=== PATIENT | male | born 1945 | race Caucasian/White ===

== ENCOUNTER 2017-10-27 22:29 | Inpatient (IN) ==
[2017-10-28] MEDS ORDERED: Acetaminophen 325 MG TABLET PO PRN (04:15)
[2017-10-28] MEDS ORDERED: Naloxone 0.4 MG/ML INJ IVP PRN (04:15)
[2017-10-28] MEDS ORDERED: Ondansetron 4 MG/2 ML VIAL IVP PRN (04:15)
[2017-10-28] MEDS ORDERED: *HR* Morphine 2 MG/ML SYRINGE IVP PRN (04:15)
[2017-10-28] MEDS ORDERED: *HR* Dextrose 50 % in Water (Syg) 50 ML SYRINGE IVP PRN (04:15)
[2017-10-28] MEDS ORDERED: D5% in Water 1,000 ML IVC PRN (04:15)
[2017-10-28] MEDS ORDERED: *HR* OxyCODONE Immed Rel 5 MG TABLET PO PRN ×2 (04:15→12:14)
[2017-10-28] MEDS ORDERED: Dextrose Gel 15 GM/37.5 ML TUBE PO PRN ×2 (04:15)
[2017-10-28] MEDS ORDERED: Nitroglycerin 0.4 MG TAB.SUBL SL PRN (04:18)
--- NOTE | 2017-10-28 04:26 | Event Note ---
Date of Encounter: 10/28/17 Time of Encounter: 04:23 1. Hyperkalemia likely secondary to acute renal failure due to severe dehydration from acute gastroenteritis Send a GI panel as the patient has had more than 9 watery bowel movements since yesterday IV fluids, hold potassium supplements, spironolactone, Lasix, lisinopril and metformin Ordered a CK, bladder scan to consider possible urinary obstruction Send a UA 2. Diabetes type 2, use insulin sliding scale and decrease the dose of long- acting insulin Levemir 30 units twice a day 3. Chronic kidney disease stage III 4. History of CAD, stable 5. History of BPH, continue Cardura, Flomax, consider Nolan catheter in retention is observed 6. Atrial fibrillation on Coumadin Warfarin doses per pharmacy 7. Bipolar disorder, decreased dose of Depakote due to acute renal failure Omeprazole for GI prophylaxis and Coumadin for DVT prophylaxis. Patient will be admitted as inpatient, expected to stay more than 2 midnights. DNR CC arrest DNI. Time spent on this admission 40 minutes
--- NOTE | 2017-10-28 04:33 | Internal Med History&Physical ---
<Rupali Casas - Last Filed: 10/28/17 04:33> Date of Encounter: 10/28/17 Time of Encounter: 04:33 Assessment and Plan (1) Hyperkalemia Current visit: No Status: Acute Hyperkalemia likely secondary to acute renal failure due to severe dehydration from acute gastroenteritis. Vitals are within normal limits. Patient appears very dry. 1. Send a GI panel as the patient has had more than 9 watery bowel movements since yesterday 2. IV fluids, hold potassium supplements, spironolactone, Lasix, lisinopril and metformin 3. Ordered a CK, bladder scan to consider possible urinary obstruction 4. Send a UA Omeprazole for GI prophylaxis and Coumadin for DVT prophylaxis. Patient will be admitted as inpatient, expected to stay more than 2 midnights. DNR CC arrest DNI. Time spent on this admission 40 minutes (2) Diabetes Current visit: No Status: Acute Diabtes, Type 2 1. Use insulin sliding scale and decrease the dose of long-acting insulin Levemir 30 units twice a day Qualifiers: Diabetes mellitus type: type 2 Diabetes mellitus complication status: with unspecified complications Diabetes mellitus long-term insulin use: with director long term care use Qualified Code(s): E11.8 - Type 2 diabetes mellitus with unspecified complications; Z79.4 - skilled nursing (current) use of insulin (3) Chronic kidney disease (CKD) Current visit: Yes Status: Acute Qualifiers: Qualified Code(s): N18.3 - Chronic kidney disease, stage 3 (moderate) (4) History of coronary artery disease Current visit: Yes Status: Acute Stable. Continue to monitor the patient. (5) History of BPH Current visit: Yes Status: Acute Will continue Cardura, Flomax, and consider Nolan catheter if retention is observed. (6) A-fib Current visit: Yes Status: Acute Patient is on Coumadin. Qualifiers: Qualified Code(s): I48.91 - Unspecified atrial fibrillation (7) Bipolar disorder Current visit: Yes Status: Acute Will decreased dose of Depakote due to acute renal failure. Qualifiers: Qualified Code(s): F31.9 - Bipolar disorder, unspecified Internal Medicine - H&P: HPI Chief complaint: Hyperkalemia, Acute Renal Failure Admitted From: Hospital to Hospital Transfer History of present illness: Mr. Mueller is a 71 year old male with a significant past medical history of [place] , CVA, chronic kidney disease, Afib, diabetes, hyperlipidemia, hypertension, CHF , and bipoloar who was transferred from [facility] for hyperkalemia and acute renal failure. The patient stated that [facility] [place] and for the past 2-3 weeks, he admits not feeling well. He stated that "whatever they are giving me is making me sick at the penitentiary". He admits nausea, vomiting, and diarrhea for the past 2-3 weeks. He denies any changes in his diet or medications. He admits he has been compliant with all of his medications. He admitted that he fell yesterday at the penitentiary after slipping in the bathroom but denies any head trauma or LOC. Per patient, they did xray his hip and reported no fractures. He denies any fever, cough, sick contacts, chest pain, shortness of breath, abdominal pain, blood in his stool, dysuria, hematuria, numbnes or tingling, and any weaknesses. Past Med Surg Social Fam HX - Past Medical History Medical history: diabetes, GERD, atrial fibrillation, hyperlipidemia, hypertension, CVA, valvular heart disease, coronary artery disease Psychiatric history: other, anxiety, bipolar, depression - Past Surgical History Surgical History: hip replacement, pacemaker/AICD, angioplasty/stent - Social History Smoking Status: Former smoker Smokeless Tobacco Status: No Alcohol use: none Drug use: none - Family History Mother Living Status: Hx Family Cardiac Disorders: Yes Hx Family Respiratory Disorders: No Hx Family Cancer: No Hx Family GI Disorders: No Hx Family Endocrine Disorder: No Hx Family Neuromuscular Disorders: No Hx Family Neurologic Disorders: No Hx Family HEENT Disorders: No Hx Family Autoimmune Disorders: No Father Living Status: Hx Family Cardiac Disorders: Yes Hx Family Respiratory Disorders: No Hx Family Cancer: No Hx Family GI Disorders: No Hx Family Endocrine Disorder: No Hx Family Neuromuscular Disorders: No Hx Family Neurologic Disorders: No Hx Family HEENT Disorders: No Hx Family Autoimmune Disorders: No Internal Medicine - H&P: Meds Acetaminophen [Tylenol] 650 mg PO Q4H PRN MDD 3-4 g 07/04/16 [History] Clopidogrel [Plavix] 75 mg PO DAILY 07/04/16 [History] Doxazosin Mesylate [Cardura Xl] 8 mg PO DAILY 07/04/16 [History] Finasteride [Proscar] 5 mg PO DAILY 07/04/16 [History] Insulin ASPART [NovoLOG] 1 - 8 unit SQ TIDWM MDD per sliding scale 07/04/16 [ History] Insulin Glargine [Lantus] 60 unit SQ QAM 07/04/16 [History] Isosorbide MONOnitrate (24 HR) [Imdur] 60 mg PO DAILY 07/04/16 [History] Metformin HCl [Metformin HCl ER] 1,000 mg PO BID 07/04/16 [History] Nitroglycerin [Nitrostat] 0.4 mg SL Q5-6MIN PRN MDD 2 doses 07/04/16 [History] Potassium Chloride Elixir [Potassium Chloride] 15 ml PO TID 07/04/16 [History] Ranitidine HCl [Heartburn Relief] 150 mg PO DAILY 07/04/16 [History] Sitagliptin Phosphate [Januvia] 50 mg PO DAILY 07/04/16 [History] Spironolactone [Aldactone] 25 mg PO QAM 07/04/16 [History] Tamsulosin HCl [Flomax] 0.4 mg PO DAILY 07/04/16 [History] amLODIPine [Norvasc] 5 mg PO DAILY 07/04/16 [History] Atorvastatin Calcium [Lipitor] 20 mg PO DAILY 07/05/16 [History] Citalopram Hydrobromide [Citalopram HBr] 10 mg PO DAILY 07/05/16 [History] Ergocalciferol (VITAMIN D2) [Vitamin D2 (50,000 UNIT)] 50,000 unit PO QMONTH 09/09 [History] Furosemide [Lasix] 80 mg PO BID 07/05/16 [History] Insulin Glargine [Lantus] 80 unit SQ HS 07/05/16 [History] Lisinopril [Zestril] 40 mg PO DAILY 07/05/16 [History] Warfarin [Coumadin] 7.5 mg PO DAILY 07/05/16 [History] Carvedilol [Coreg] 12.5 mg PO BIDWM #60 tablet 07/07/16 [Rx] Cyanocobalamin (Vitamin B-12) [Vitamin B12] 1,000 mcg PO DAILY 02/13/17 [History ] Divalproex Sodium [Depakote Sprinkle] 250 mg PO HS 02/13/17 [History] Insulin ASPART [Novolog] 32 unit SQ TIDWM 02/13/17 [History] Loperamide HCl [Imodium A-D] 2 mg PO DAILY PRN 02/13/17 [History] 3 Allergy/AdvReac Type Severity Reaction Status Date / Time No Known Allergies Allergy Verified 10/27/17 20:46 All Systems PM: A 10-system review of systems was performed and is negative for pertinent findings except as documented above in the HPI. - Constitutional Vitals: Temp Pulse Resp BP Pulse Ox 98.2 F 74 17 116/57 92 10/28/17 03:49 10/28/17 03:49 10/28/17 03:49 10/28/17 03:49 10/28/17 03:49 General appearance: Present: cooperative, A&O X 3, pleasant. Absent: no acute distress - Head Head exam: Present: atraumatic, normocephalic - Eye Eye exam: Present: EOMI, PERRL, conjuntiva pink, sclera anicteric Pupils: Present: PERRL - ENT ENT exam: Present: mucous membranes dry Additional comments: Patient appears really dry on exam. Mucus membranes, lips, and skin are dry. - Neck Neck exam general surgery: Present: supple, trachea midline. Absent: lymphadenopathy, tenderness - Respiratory Respiratory exam: Present: CTAB. Absent: accessory muscle use, rales, rhonchi, wheezes - Cardiovascular Cardiovascular exam: Present: RRR, +S1, +S2. Absent: diastolic murmur, gallop, rubs, systolic murmur - GI/Abdominal GI/Abdominal exam: Present: normal bowel sounds, soft, no peritoneal signs. Absent: distended, tenderness - Extremities Exam Extremities exam: Present: tenderness (The patient grimaced as I moved his left lower extremity to examine him. No bleeding, ecchymosis, or laceration noted. Distal pulses are +2/4 bilaterally ), warm, radial pulses palpable and symmetrical. Absent: calf tenderness, cyanotic, pedal edema - Neurological Exam Neurological exam: Present: CN II-XII intact, oriented X3, no focal deficits. Absent: motor sensory deficit, pronater drift, facial droop, speech deficit - Skin Skin exam: Present: dry, intact <Reymundo-Matovelle,Reuben H - Last Filed: 10/28/17 05:40> Date of Encounter: 10/28/17 Internal Medicine - H&P: HPI History of present illness: Mr. Mueller is a 71 year old male All Systems PM: A 10-system review of systems was performed and is negative for pertinent findings except as documented above in the HPI. - Constitutional Vitals: Temp Pulse Resp BP Pulse Ox 98.2 F 74 17 116/57 92 10/28/17 03:49 10/28/17 03:49 10/28/17 03:49 10/28/17 03:49 10/28/17 03:49 Internal Med - H&P Results - Labs CBC & Chem 7: 10/28/17 03:44 10/28/17 03:44 Labs: Short CBC 10/28/17 Range/Units 03:44 WBC 10.0 (4.3-11.1) K/mcL Hgb 12.5 L D (12.9-16.9) g/dL Hct 38.4 (37.5-50.1) % Plt Count 131 L (140-400) K/mcL BMP 10/28/17 03:44 Sodium 141 Potassium 5.5 H Chloride 109 H Carbon Dioxide 25 BUN 69 H Creatinine 3.16 H Glucose 141 H Calcium 9.2 - Attending Attestation Date of Encounter: 10/28/17 Time of Encounter: 04:23 1. Hyperkalemia likely secondary to acute renal failure due to severe dehydration from acute gastroenteritis Send a GI panel as the patient has had more than 9 watery bowel movements since yesterday IV fluids, hold potassium supplements, spironolactone, Lasix, lisinopril and metformin Ordered a CK, bladder scan to consider possible urinary obstruction Send a UA Recheck labs including BMP to consider adding additional doses of calcium gluconate, bicarbonate, D50, insulin, Kayexalate may not be used as the patient has diarrhea already 2. Diabetes type 2, use insulin sliding scale and decrease the dose of long- acting insulin Levemir 30 units twice a day 3. Chronic kidney disease stage III 4. History of CAD, stable 5. History of BPH, continue Cardura, Flomax, consider Nolan catheter if retention is confirmed 6. Atrial fibrillation on Coumadin Warfarin doses per pharmacy 7. Bipolar disorder, decreased dose of Depakote due to acute renal failure Omeprazole for GI prophylaxis and Coumadin for DVT prophylaxis. Patient will be admitted as inpatient, expected to stay more than 2 midnights. DNR CC arrest DNI. Time spent on this admission 40 minutes I examined this patient and my medical decision-making was reviewed with the Resident Physician. I agree with the documented findings, disposition and treatment plan as described except to the extent set forth below.
[2017-10-28 04:40] LABS: Hematocrit 38.4 % (37.5-50.1); Hemoglobin 12.5 g/dL (12.9-16.9); Mean Corpuscular HGB Conc 32.6 g/dL (31.6-35.5); Mean Corpuscular Volume 92.3 fL (83.0-100.0); Mean Platelet Volume 11.4 fL (9.4-12.4); Platelet Count 131 K/mcL (140-400); Red Blood Count 4.16 M/mcL (4.19-5.50); Red Cell Distribution Width 16.8 % (11.5-14.5)
[2017-10-28 05:04] LABS: Calcium 9.2 mg/dL (8.6-10.3); Potassium 5.5 mEq/L (3.5-5.1)
[2017-10-28] MEDS: 0.9 % Sodium Chloride 1,000 ML IVC SCH ×3 (05:31→12:54)
[2017-10-28 06:20] LABS: INR 2.9; Prothrombin Time 32.2 Seconds (9.4-12.1)
[2017-10-28] MEDS: Finasteride 5 MG TABLET PO SCH (08:50)
[2017-10-28] MEDS: amLODIPine 5 MG TABLET PO SCH (08:51)
[2017-10-28] MEDS: Insulin LISPRO 300 UNITS/3 ML VIAL SQ SCH ×4 (08:54→20:46)
[2017-10-28] MEDS ORDERED: NON-FORMULARY MEDICATION 1 EACH EACH (Insulin Glargine [Lantus] 30 UNIT) SQ SCH (09:00)
[2017-10-28] MEDS: Insulin DETEMIR 100 UNIT/ML X5UNITS SQ SCH ×2 (09:00→20:45)
[2017-10-28] MEDS ORDERED: Isosorbide MONOnitrate (24 HR) 60 MG TAB.ER.24H PO SCH (09:00)
[2017-10-28 16:07] LABS: Bilirubin,Urine Negative (Negative); Blood,Urine Moderate (Negative); Clarity,Urine Turbid (Clear); Color,Urine Yellow (Yellow); Glucose,Urine (UA) Normal (Normal); Ketones,Urine Negative (Negative); Leukocyte Esterase,Urine Large (Negative); Nitrite,Urine Negative (Negative); Protein,Urine >=300 mg/dL (Neg-Trace); Specific Gravity,Urine 1.015 (1.010-1.025); Urobilinogen,Urine Normal (Normal)
[2017-10-28 16:13] LABS: Bacteria,Urine Many per hpf (None-Few); Mucus,Urine Many (Few); Squamous Epithelial Cell,Urine Present per lpf (None-Few)
[2017-10-28 16:15] LABS: RBC,Urine Present per hpf (0-3); WBC,Urine TNTC per hpf (0-3)
[2017-10-28] MEDS ORDERED: 0.9 % Sodium Chloride 500 ML IV SCH (16:45)
[2017-10-28] MEDS ORDERED: 0.9 % Sodium Chloride 500 ML IVC SCH (16:45)
[2017-10-28] MEDS ORDERED: 0.9 % Sodium Chloride 1,000 ML IVC SCH (17:45)
[2017-10-28] MEDS ORDERED: 0.9 % Sodium Chloride 1,000 ML ONE (17:45)
[2017-10-28] MEDS ORDERED: *HR* Warfarin 2.5 MG TABLET PO ONE (18:00)
[2017-10-28] MEDS ORDERED: Warfarin perPT PO PRN (18:00)
[2017-10-28] MEDS ORDERED: *HR* Warfarin 7.5 MG TABLET PO ONE (18:00)
[2017-10-28] MEDS: Divalproex Sodium 125 MG CAPSULE PO SCH (20:45)
--- NOTE | 2017-10-28 22:15 | Event Note ---
Date of Encounter: 10/28/17 Time of Encounter: 10:12 Patient was seen and examined this AM. 71 year old man presents with dehydration likely from viral illness. He had KIRIT with elevated potassium as well. Patient has been given IVF and somewhat improved. This morning he was hypotensive and required 500 cc bolus which did improve BP. VS: Reviewed, BP improved after fluids, normal HR, afebrile Physical exam: obese male in no acute distress. Heart sounds normal, lung sounds difficult to appreciate because of body habitus and patient positioning but could not appreciate any w/r/r. Lower extremity 1+ pedal edema bilaterally - Continue IVF as needed, judiciously as patient does have heart failure history. - Nephrology following, recommendations appreciated - Hypotension: hold home medications until BP normalizes
[2017-10-29 06:48] LABS: INR 2.8; Prothrombin Time 31.3 Seconds (9.4-12.1)
[2017-10-29 06:56] LABS: Calcium 8.5 mg/dL (8.6-10.3); Magnesium 1.2 mg/dL (1.6-2.6); Potassium 5.1 mEq/L (3.5-5.1)
[2017-10-29] MEDS: Insulin LISPRO 300 UNITS/3 ML VIAL SQ SCH ×4 (08:30→21:44)
[2017-10-29] MEDS: Insulin DETEMIR 100 UNIT/ML X5UNITS SQ SCH ×2 (08:31→21:44)
[2017-10-29] MEDS: Finasteride 5 MG TABLET PO SCH (08:31)
[2017-10-29] MEDS ORDERED: cefTRIAXone 1,000 MG in Water for inj. (sterile) 20 ML 10 ML IVP SCH (10:00)
[2017-10-29] MEDS ORDERED: *HR* Warfarin 2 MG TABLET PO ONE (18:00)
--- NOTE | 2017-10-29 19:05 | Internal Med Progress Note ---
Date of Encounter: 10/29/17 Time of Encounter: 19:03 - Assessment and plan (1) Dehydration Current Visit: Yes Status: Acute Assessment and plan: Judicious IV fluid. Family at bedside states that he gets fluid overloaded very easy. Patient is eating now, will DC IV fluids and monitor. (2) Atrial fibrillation Current Visit: Yes Status: Acute Qualifiers: Atrial fibrillation type: chronic Qualified Code(s): I48.2 - Chronic atrial fibrillation (3) Coronary artery disease Current Visit: Yes Status: Acute Qualifiers: Coronary Disease-Associated Artery/Lesion type: unspecified vessel or lesion type [place] vs. transplanted heart: unspecified whether [place] or transplanted heart Associated angina: angina presence unspecified Qualified Code(s): I25.10 - Atherosclerotic heart disease of [place] coronary artery without angina pectoris (4) Acute renal failure Current Visit: No Status: Acute Assessment and plan: Improving with IV fluid Qualifiers: Acute renal failure type: unspecified Qualified Code(s): N17.9 - Acute kidney failure, unspecified (5) Hyperkalemia Current Visit: No Status: Acute (6) Hypertension Current Visit: Yes Status: Acute Assessment and plan: Currently hypotensive so hold BP medications except for metoprolol as patient does have atrial fibrillation. Qualifiers: Hypertension type: essential hypertension Qualified Code(s): I10 - Essential (primary) hypertension - Subjective Interval history: Had episode of hypotension overnight 84/48 overnight, hr was within normal limits. Morning BP meds have been held and patient currently normotensive. Patient states he only had one loose BM today, better formed than yesterday. - Constitutional Vitals: Temp Pulse Resp BP Pulse Ox 97.6 F 84 16 128/56 92 10/29/17 16:44 10/29/17 16:44 10/29/17 16:44 10/29/17 16:44 10/29/17 16:44 General appearance: Present: cooperative, A&O X 3, pleasant. Absent: no acute distress Internal Medicine: Result - Labs CBC & Chem 7: 10/28/17 03:44 10/29/17 06:21 Labs: BMP 10/29/17 06:21 Sodium 142 Potassium 5.1 Chloride 113 H Carbon Dioxide 24 BUN 40 H Creatinine 1.92 H Glucose 261 H Calcium 8.5 L - ABG Interpretation ABG results: PT/INR, D-dimer PT 31.3 Seconds (9.4-12.1) H 10/29/17 06:21 Consult Discharge Plan - Plan Referrals: Chantel Narvaez MD [Primary Care Provider] - (Patient will follow up with [facility])
[2017-10-29] MEDS: Divalproex Sodium 125 MG CAPSULE PO SCH (21:44)
[2017-10-30 05:04] LABS: Basophils % 0.4 %; Eosinophils # 0.3 K/mcL (0.0-0.6); Eosinophils % 3.4 %; Hemoglobin 12.1 g/dL (12.9-16.9); Immature Granulocytes % 1.2 % (0-4); Lymphocytes # 1.4 K/mcL (0.6-4.6); Lymphocytes % 18.2 %; Mean Corpuscular HGB Conc 31.8 g/dL (31.6-35.5); Mean Corpuscular Volume 94.1 fL (83.0-100.0); Mean Platelet Volume 10.7 fL (9.4-12.4); Monocytes # 0.9 K/mcL (0.0-1.3); Monocytes % 12.3 %; Neutrophils # 4.9 K/mcL (1.6-8.9); Platelet Count 109 K/mcL (140-400); Red Blood Count 4.04 M/mcL (4.19-5.50); Red Cell Distribution Width 16.6 % (11.5-14.5); Segmented Neutrophils % 64.5 %
[2017-10-30 05:20] LABS: INR 2.7; Prothrombin Time 29.5 Seconds (9.4-12.1)
[2017-10-30 05:32] LABS: BUN/Creatinine Ratio 18 (6-26); Blood Urea Nitrogen 24 mg/dL (8-23); Calcium 8.9 mg/dL (8.6-10.3); Carbon Dioxide 24 mEq/L (23-29); Chloride 111 mEq/L (98-107); Glucose 275 mg/dL (70-105); Osmolality,Calculated 306 (280-300); Sodium 141 mEq/L (136-145); eGFR For African Americans > 60 (> 60); eGFR For Non-African Americans 54 (> 60)
[2017-10-30] MEDS: Finasteride 5 MG TABLET PO SCH (08:49)
[2017-10-30] MEDS: amLODIPine 5 MG TABLET PO SCH (08:49)
[2017-10-30] MEDS: Insulin LISPRO 300 UNITS/3 ML VIAL SQ SCH ×4 (08:51→21:46)
[2017-10-30] MEDS: Insulin DETEMIR 100 UNIT/ML X5UNITS SQ SCH ×2 (08:51→21:29)
--- NOTE | 2017-10-30 13:19 | Internal Med Progress Note ---
Date of Encounter: 10/30/17 Time of Encounter: 13:17 - Assessment and plan (1) Dehydration Current Visit: Yes Status: Resolved Assessment and plan: Judicious IV fluid. Patient now eating and not dehydrated, fluids were discontinued 10/29/17, appetite is good. 10/30/16 Patient had urine cultures showing MDRO Proteus and Rocephin was discontinued and he was started on meropenem. (2) Urinary tract infection due to Proteus Current Visit: Yes Status: Acute Assessment and plan: Will begin meropenem based on culture sensitivities. Since patient needs IV antibiotics, this may delay his disposition as this is a weekend and it is undetermined at this point if he needs to go home with IV treatment. Will monitor. (3) Atrial fibrillation Current Visit: Yes Status: Acute Assessment and plan: Continue Coreg, Warfarin Qualifiers: Atrial fibrillation type: chronic Qualified Code(s): I48.2 - Chronic atrial fibrillation (4) Acute renal failure Current Visit: No Status: Acute Assessment and plan: Improving after he was given IV fluids. IV fluids held as patient was euvolemic and normotensive and he is prone to fluid overload. He is also eating without difficulty. Qualifiers: Acute renal failure type: unspecified Qualified Code(s): N17.9 - Acute kidney failure, unspecified (5) Coronary artery disease Current Visit: Yes Status: Acute Assessment and plan: On Plavix Qualifiers: Coronary Disease-Associated Artery/Lesion type: unspecified vessel or lesion type [place] vs. transplanted heart: unspecified whether [place] or transplanted heart Associated angina: angina presence unspecified Qualified Code(s): I25.10 - Atherosclerotic heart disease of [place] coronary artery without angina pectoris (6) Hyperkalemia Current Visit: No Status: Acute Assessment and plan: Replace as needed. (7) Hypertension Current Visit: Yes Status: Acute Assessment and plan: He was hypotensive from dehydration so were held. May add back his hypertensive agents gradually as needed. Metoprolol was continued as patient does have atrial fibrillation. Norvasc added back on 10/29/17. Qualifiers: Hypertension type: essential hypertension Qualified Code(s): I10 - Essential (primary) hypertension (8) Hypomagnesemia Current Visit: Yes Status: Acute Assessment and plan: From acute illness. Will replace today. Patient eating normally, anticipate will be normal in few days. - Subjective Interval history: Had episode of hypotension overnight 84/48 overnight, hr was within normal limits. Morning BP meds have been held and patient currently normotensive. 10/30 : Patient is normotensive, normal HR Patient states he only had one loose BM today, better formed than yesterday. - Constitutional Vitals: Temp Pulse Resp BP Pulse Ox 98.3 F 90 18 101/52 96 10/30/17 11:58 10/30/17 11:58 10/30/17 11:58 10/30/17 11:58 10/30/17 11:58 General appearance: Present: cooperative, A&O X 3, pleasant. Absent: no acute distress - Head Head exam: Present: atraumatic, normocephalic - Eye Eye exam: Present: PERRL, conjuntiva pink, sclera anicteric Pupils: Present: PERRL - Neck Neck exam general surgery: Present: supple, trachea midline. Absent: lymphadenopathy - Respiratory Respiratory exam: Present: decreased breath sounds, CTAB. Absent: accessory muscle use, rales, rhonchi, wheezes - Cardiovascular Cardiovascular exam: Present: RRR, +S1, +S2. Absent: diastolic murmur, gallop, rubs, systolic murmur - GI/Abdominal GI/Abdominal exam: Present: normal bowel sounds, soft, no peritoneal signs. Absent: distended, tenderness - Extremities Exam Extremities exam: Present: pedal edema, warm, radial pulses palpable and symmetrical. Absent: calf tenderness, cyanotic Additional comments: at patient's stated baseline; 1+ bipedal - Neurological Exam Neurological exam: Present: CN II-XII intact, oriented X3, no focal deficits. Absent: pronater drift, facial droop, speech deficit - Skin Skin exam: Present: dry, intact Internal Medicine: Result - Labs CBC & Chem 7: 10/30/17 04:58 10/30/17 04:58 Labs: Short CBC 10/30/17 Range/Units 04:58 WBC 7.6 (4.3-11.1) K/mcL Hgb 12.1 L (12.9-16.9) g/dL Hct 38.0 (37.5-50.1) % Plt Count 109 L (140-400) K/mcL Neutrophils # 4.9 (1.6-8.9) K/mcL BMP 10/30/17 04:58 Sodium 141 Potassium 5.0 Chloride 111 H Carbon Dioxide 24 BUN 24 H Creatinine 1.31 H Glucose 275 H Calcium 8.9 - ABG Interpretation ABG results: PT/INR, D-dimer PT 29.5 Seconds (9.4-12.1) H 10/30/17 04:58 Consult Discharge Plan - Plan Referrals: Chantel Narvaez MD [Primary Care Provider] - (Patient will follow up with [facility])
[2017-10-30] MEDS: Meropenem 1,000 MG in Water for inj. (sterile) 10 ML IVP SCH (17:22)
[2017-10-30] MEDS: Divalproex Sodium 125 MG CAPSULE PO SCH (21:29)
[2017-10-31] MEDS: Meropenem 1,000 MG in Water for inj. (sterile) 20 ML 10 ML IVP SCH ×3 (00:59→17:32)
[2017-10-31] MEDS: Meropenem 1,000 MG in Water for inj. (sterile) 10 ML IVP SCH (01:22)
[2017-10-31 04:17] LABS: Basophils % 0.2 %; Eosinophils # 0.3 K/mcL (0.0-0.6); Eosinophils % 3.4 %; Hematocrit 35.1 % (37.5-50.1); Hemoglobin 11.5 g/dL (12.9-16.9); Immature Granulocytes % 1.1 % (0-4); Lymphocytes # 1.9 K/mcL (0.6-4.6); Lymphocytes % 23.1 %; Mean Corpuscular HGB Conc 32.8 g/dL (31.6-35.5); Mean Corpuscular Volume 91.6 fL (83.0-100.0); Mean Platelet Volume 11.2 fL (9.4-12.4); Monocytes # 1.1 K/mcL (0.0-1.3); Monocytes % 13.2 %; Neutrophils # 4.9 K/mcL (1.6-8.9); Platelet Count 116 K/mcL (140-400); Red Blood Count 3.83 M/mcL (4.19-5.50); Red Cell Distribution Width 16.2 % (11.5-14.5)
[2017-10-31 04:29] LABS: INR 1.7; Prothrombin Time 18.3 Seconds (9.4-12.1)
[2017-10-31 04:41] LABS: BUN/Creatinine Ratio 13 (6-26); Blood Urea Nitrogen 14 mg/dL (8-23); Calcium 9.2 mg/dL (8.6-10.3); Carbon Dioxide 23 mEq/L (23-29); Chloride 106 mEq/L (98-107); Glucose 238 mg/dL (70-105); Osmolality,Calculated 288 (280-300); Potassium 4.2 mEq/L (3.5-5.1); Sodium 135 mEq/L (136-145); eGFR For African Americans > 60 (> 60); eGFR For Non-African Americans > 60 (> 60)
[2017-10-31] MEDS: Insulin LISPRO 300 UNITS/3 ML VIAL SQ SCH ×4 (09:14→21:30)
[2017-10-31] MEDS: Insulin DETEMIR 100 UNIT/ML X5UNITS SQ SCH ×2 (09:16→21:30)
[2017-10-31] MEDS: amLODIPine 5 MG TABLET PO SCH (09:17)
[2017-10-31] MEDS: Finasteride 5 MG TABLET PO SCH (09:18)
--- NOTE | 2017-10-31 13:06 | Internal Med Progress Note ---
Date of Encounter: 10/31/17 Time of Encounter: 13:04 - Assessment and plan (1) Dehydration Current Visit: Yes Status: Resolved Assessment and plan: He was rehydrated judiciously with IV fluid. Patient now eating and not dehydrated, fluids were discontinued 10/29/17, appetite is good and eating without issue. Still hypotensive and Imdur and lisinopril held. 10/30/16 Patient had urine cultures showing MDRO Proteus and Rocephin was discontinued and he was started on meropenem. (2) Urinary tract infection due to Proteus Current Visit: Yes Status: Acute Assessment and plan: Patient was started on Rocephin initially for UTI. Cultures came back on 10/30 for Proteus that had multiple resistence, best covered with meropenem. Patient will need IV antibiotics on discharge. (3) Atrial fibrillation Current Visit: Yes Status: Acute Assessment and plan: Continue Coreg, Warfarin Qualifiers: Atrial fibrillation type: chronic Qualified Code(s): I48.2 - Chronic atrial fibrillation (4) Acute renal failure Current Visit: No Status: Acute Assessment and plan: Resolved. was Improving after he was given IV fluids. IV fluids held as patient was euvolemic and normotensive and he is prone to fluid overload. He is also eating without difficulty. Qualifiers: Acute renal failure type: unspecified Qualified Code(s): N17.9 - Acute kidney failure, unspecified (5) Coronary artery disease Current Visit: Yes Status: Acute Assessment and plan: On Plavix Qualifiers: Coronary Disease-Associated Artery/Lesion type: unspecified vessel or lesion type [place] vs. transplanted heart: unspecified whether [place] or transplanted heart Associated angina: angina presence unspecified Qualified Code(s): I25.10 - Atherosclerotic heart disease of [place] coronary artery without angina pectoris (6) Hypertension Current Visit: Yes Status: Acute Assessment and plan: He was hypotensive from dehydration so were held. May add back his hypertensive agents gradually as needed. - Coreg continued as patient does have atrial fibrillation. - Norvasc added back on 10/29/17. Following home medications are still held to avoid hypotensive episodes: Doxazosin, Imdur, Aldactone, Lasix, Lisinopril. Qualifiers: Hypertension type: essential hypertension Qualified Code(s): I10 - Essential (primary) hypertension (7) Hyperkalemia Current Visit: No Status: Acute Assessment and plan: Replace as needed. Lasix is held due to recent dehydration and hypotension. (8) Hypomagnesemia Current Visit: Yes Status: Acute Assessment and plan: From acute illness. Will replace today. Patient eating normally, anticipate will be normal in few days. (9) BPH (benign prostatic hyperplasia) Current Visit: Yes Status: Acute Assessment and plan: Continue Finasteride, Flomax Cardura, hypotensive episodes. can add back when BP tolerates Qualifiers: Lower urinary tract symptom presence: unspecified whether lower urinary tract symptoms present Qualified Code(s): N40.0 - Benign prostatic hyperplasia without lower urinary tract symptoms (10) Diabetes Current Visit: No Status: Acute Assessment and plan: On [place] 30 BID, and sliding scale Qualifiers: Diabetes mellitus type: type 2 Diabetes mellitus complication status: with unspecified complications Diabetes mellitus extermination inspector insulin use: with extermination inspector use Qualified Code(s): E11.8 - Type 2 diabetes mellitus with unspecified complications; Z79.4 - termite exterminator (current) use of insulin (11) DVT prophylaxis Current Visit: No Status: Acute Assessment and plan: On coumadin - Subjective Interval history: Last episode of hypotension 84/48 was on 10/29. BP medications were held. Norvasc added back so far. Given IV fluid when needed and then BP stays within normal limits. Since 10/30 patient has been having more formed stools, normal color without any blood. He denies fevers/chills, n/v. - Constitutional Vitals: Temp Pulse Resp BP Pulse Ox 98.3 F 92 18 103/63 94 10/31/17 11:42 10/31/17 11:42 10/31/17 11:42 10/31/17 11:42 10/31/17 11:42 General appearance: Present: cooperative, A&O X 3, morbidly obese, pleasant. Absent: no acute distress - Head Head exam: Present: atraumatic, normocephalic - Eye Eye exam: Present: PERRL, conjuntiva pink, sclera anicteric Pupils: Present: PERRL - Neck Neck exam general surgery: Present: supple, trachea midline. Absent: lymphadenopathy - Respiratory Respiratory exam: Present: decreased breath sounds, CTAB. Absent: accessory muscle use, rales, rhonchi, wheezes - Cardiovascular Cardiovascular exam: Present: RRR, +S1, +S2. Absent: diastolic murmur, gallop, rubs, systolic murmur - GI/Abdominal GI/Abdominal exam: Present: normal bowel sounds, soft, no peritoneal signs. Absent: distended, tenderness - Extremities Exam Extremities exam: Present: pedal edema, warm, radial pulses palpable and symmetrical. Absent: calf tenderness, cyanotic Additional comments: edema unchanged since yesterday exam - Neurological Exam Neurological exam: Present: CN II-XII intact, oriented X3, no focal deficits. Absent: pronater drift, facial droop, speech deficit - Skin Skin exam: Present: dry, intact Internal Medicine: Result - Labs CBC & Chem 7: 10/31/17 03:38 10/31/17 03:38 Labs: Short CBC 10/31/17 Range/Units 03:38 WBC 8.3 (4.3-11.1) K/mcL Hgb 11.5 L (12.9-16.9) g/dL Hct 35.1 L (37.5-50.1) % Plt Count 116 L (140-400) K/mcL Neutrophils # 4.9 (1.6-8.9) K/mcL BMP 10/31/17 03:38 Sodium 135 L Potassium 4.2 Chloride 106 Carbon Dioxide 23 BUN 14 Creatinine 1.07 Glucose 238 H Calcium 9.2 - ABG Interpretation ABG results: PT/INR, D-dimer PT 18.3 Seconds (9.4-12.1) H 10/31/17 03:38 Consult Discharge Plan - Plan Referrals: Chantel Narvaez MD [Primary Care Provider] - (Patient will follow up with [facility] pcp)
[2017-10-31] MEDS ORDERED: Insulin LISPRO 300 UNITS/3 ML VIAL SQ SCH (17:00)
[2017-10-31] MEDS: Divalproex Sodium 125 MG CAPSULE PO SCH (21:30)
[2017-11-01] MEDS: Meropenem 1,000 MG in Water for inj. (sterile) 20 ML 10 ML IVP SCH ×2 (00:12→09:48)
[2017-11-01 05:42] LABS: Basophils % 0.3 %; Eosinophils # 0.3 K/mcL (0.0-0.6); Eosinophils % 3.3 %; Hematocrit 38.6 % (37.5-50.1); Hemoglobin 12.4 g/dL (12.9-16.9); Immature Granulocytes % 1.3 % (0-4); Lymphocytes # 1.5 K/mcL (0.6-4.6); Lymphocytes % 19.4 %; Mean Corpuscular HGB Conc 32.1 g/dL (31.6-35.5); Mean Corpuscular Hemoglobin 29.3 pg (28.0-33.3); Mean Corpuscular Volume 91.3 fL (83.0-100.0); Mean Platelet Volume 10.8 fL (9.4-12.4); Monocytes % 13.1 %; Neutrophils # 4.7 K/mcL (1.6-8.9); Platelet Count 124 K/mcL (140-400); Red Blood Count 4.23 M/mcL (4.19-5.50); Segmented Neutrophils % 62.6 %
[2017-11-01 05:43] LABS: BUN/Creatinine Ratio 12 (6-26); Blood Urea Nitrogen 11 mg/dL (8-23); Calcium 9.3 mg/dL (8.6-10.3); Carbon Dioxide 27 mEq/L (23-29); Chloride 105 mEq/L (98-107); Glucose 288 mg/dL (70-105); Magnesium 1.5 mg/dL (1.6-2.6); Osmolality,Calculated 292 (280-300); Potassium 4.1 mEq/L (3.5-5.1); Sodium 136 mEq/L (136-145); eGFR For African Americans > 60 (> 60); eGFR For Non-African Americans > 60 (> 60)
[2017-11-01] MEDS: Finasteride 5 MG TABLET PO SCH (09:46)
[2017-11-01] MEDS: amLODIPine 5 MG TABLET PO SCH (09:47)
[2017-11-01] MEDS: Lisinopril 20 MG TABLET PO SCH (09:47)
[2017-11-01] MEDS: Insulin LISPRO 300 UNITS/3 ML VIAL SQ SCH ×7 (09:50→22:02)
[2017-11-01] MEDS: Insulin DETEMIR 100 UNIT/ML X5UNITS SQ SCH ×2 (09:50→22:02)
[2017-11-01 13:20] LABS: INR 1.1; Prothrombin Time 12.2 Seconds (9.4-12.1)
[2017-11-01] MEDS ORDERED: 0.9 % Sodium Chloride 500 ML IVC ONE (14:30)
--- NOTE | 2017-11-01 15:35 | Internal Med Progress Note ---
Date of Encounter: 11/01/17 Time of Encounter: 15:33 - Assessment and plan (1) Urinary tract infection due to Proteus Current Visit: Yes Status: Acute Assessment and plan: Patient was started on Rocephin initially for UTI. Cultures came back on 10/30 for Proteus that had multiple resistance, best covered with meropenem. He has periodic episodes of hypotension, BP did improve but today dropped to 93/51. Does not appear septic, afebrile with normal white count. (2) Hypotension Current Visit: Yes Status: Acute Assessment and plan: some antihypertensives were added back yesterday. Will hold Norvasc and give IVF. Will monitor closely. Qualifiers: Hypotension type: unspecified hypotension type Qualified Code(s): I95.9 - Hypotension, unspecified (3) Dehydration Current Visit: Yes Status: Resolved Assessment and plan: He was rehydrated judiciously with IV fluid. Patient now eating and not dehydrated, fluids were discontinued 10/29/17, appetite is good and eating without issue. BP improved and so IV were stopped. BP now fluctuates up and down, currently was hypotensive so fluid will be restarted. (4) Atrial fibrillation Current Visit: Yes Status: Acute Assessment and plan: Continue Coreg, Warfarin Qualifiers: Atrial fibrillation type: chronic Qualified Code(s): I48.2 - Chronic atrial fibrillation (5) Acute renal failure Current Visit: No Status: Resolved Assessment and plan: Resolved. was Improving after he was given IV fluids. IV fluids held as patient was euvolemic and normotensive and he is prone to fluid overload. He is also eating without difficulty. Qualifiers: Acute renal failure type: unspecified Qualified Code(s): N17.9 - Acute kidney failure, unspecified (6) Coronary artery disease Current Visit: Yes Status: Acute Assessment and plan: On Plavix Qualifiers: Coronary Disease-Associated Artery/Lesion type: unspecified vessel or lesion type [place] vs. transplanted heart: unspecified whether [place] or transplanted heart Associated angina: angina presence unspecified Qualified Code(s): I25.10 - Atherosclerotic heart disease of [place] coronary artery without angina pectoris (7) Hypertension Current Visit: Yes Status: Acute Assessment and plan: Chronic condition, currently patient BP fluctuating. Qualifiers: Hypertension type: essential hypertension Qualified Code(s): I10 - Essential (primary) hypertension (8) Hyperkalemia Current Visit: No Status: Acute Assessment and plan: Replace as needed. Lasix is held due to recent dehydration and hypotension. (9) Hypomagnesemia Current Visit: Yes Status: Acute Assessment and plan: From acute illness. Will replace today. Patient eating normally, anticipate will be normal in few days. (10) BPH (benign prostatic hyperplasia) Current Visit: Yes Status: Acute Qualifiers: Lower urinary tract symptom presence: unspecified whether lower urinary tract symptoms present Qualified Code(s): N40.0 - Benign prostatic hyperplasia without lower urinary tract symptoms (11) Diabetes Current Visit: No Status: Acute Assessment and plan: On [place] 30 BID, and sliding scale Qualifiers: Diabetes mellitus type: type 2 Diabetes mellitus complication status: with unspecified complications Diabetes mellitus care home insulin use: with manager terminal use Qualified Code(s): E11.8 - Type 2 diabetes mellitus with unspecified complications; Z79.4 - FDC (current) use of insulin (12) DVT prophylaxis Current Visit: No Status: Acute Assessment and plan: On coumadin - Subjective Interval history: Last episode of hypotension 84/48 was on 10/29. BP medications were held. Norvasc added back so far. Given IV fluid when needed and then BP stays within normal limits. Since 10/30 patient has been having more formed stools, normal color without any blood. 11/01: he had another episode of hypotension. He denies fevers/chills, n/v. - Constitutional Vitals: Temp Pulse Resp BP Pulse Ox 97.3 F L 81 16 98/60 92 11/01/17 11:33 11/01/17 11:33 11/01/17 11:33 11/01/17 13:49 11/01/17 11:33 General appearance: Present: cooperative, A&O X 3, morbidly obese, pleasant. Absent: no acute distress Exam: - Head Head exam: Present: atraumatic, normocephalic - Eye Eye exam: Present: EOMI, PERRL, conjuntiva pink, sclera anicteric Pupils: Present: PERRL - ENT ENT exam: Present: mucous membranes moist Additional comments: Patient appears really dry on exam. Mucus membranes, lips, and skin are dry. - Neck Neck exam general surgery: Present: supple, trachea midline. Absent: lymphadenopathy, tenderness - Respiratory Respiratory exam: Present: CTAB. Absent: accessory muscle use, rales, rhonchi, wheezes - Cardiovascular Cardiovascular exam: Present: RRR, +S1, +S2. Absent: diastolic murmur, gallop, rubs, systolic murmur - GI/Abdominal GI/Abdominal exam: Present: normal bowel sounds, soft, no peritoneal signs. Absent: distended, tenderness - Extremities Exam Extremities exam: Present: tenderness, warm, radial pulses palpable and symmetrical. Absent: calf tenderness, cyanotic, pedal edema - Neurological Exam Neurological exam: Present: CN II-XII intact, oriented X3, no focal deficits. Absent: motor sensory deficit, pronater drift, facial droop, speech deficit - Skin Skin exam: Present: dry, intact Internal Medicine: Result - Labs CBC & Chem 7: 11/01/17 04:57 11/01/17 04:57 Labs: Short CBC 11/01/17 Range/Units 04:57 WBC 7.5 (4.3-11.1) K/mcL Hgb 12.4 L (12.9-16.9) g/dL Hct 38.6 (37.5-50.1) % Plt Count 124 L (140-400) K/mcL Neutrophils # 4.7 (1.6-8.9) K/mcL BMP 11/01/17 04:57 Sodium 136 Potassium 4.1 Chloride 105 Carbon Dioxide 27 BUN 11 Creatinine 0.93 Glucose 288 H Calcium 9.3 - ABG Interpretation ABG results: PT/INR, D-dimer PT 12.2 Seconds (9.4-12.1) H 11/01/17 13:05 Consult Discharge Plan - Plan Referrals: Chantel Narvaez MD [Primary Care Provider] - (Patient will follow up with [facility] p[facility])
[2017-11-01] MEDS ORDERED: 0.9 % Sodium Chloride 1,000 ML IVC SCH (15:45)
[2017-11-01] MEDS: Ertapenem 1,000 MG in Water for inj. (sterile) 20 ML 10 ML IVP SCH (16:44)
[2017-11-01] MEDS ORDERED: *HR* Warfarin 1 MG TABLET PO ONE (18:00)
[2017-11-01] MEDS: Divalproex Sodium 125 MG CAPSULE PO SCH (22:02)
[2017-11-02 07:11] LABS: Basophils % 0.3 %; Eosinophils # 0.3 K/mcL (0.0-0.6); Eosinophils % 3.3 %; Hematocrit 36.5 % (37.5-50.1); Hemoglobin 12.1 g/dL (12.9-16.9); Immature Granulocytes % 0.9 % (0-4); Lymphocytes # 1.6 K/mcL (0.6-4.6); Lymphocytes % 15.6 %; Mean Corpuscular HGB Conc 33.2 g/dL (31.6-35.5); Mean Corpuscular Hemoglobin 30.3 pg (28.0-33.3); Mean Corpuscular Volume 91.3 fL (83.0-100.0); Mean Platelet Volume 10.8 fL (9.4-12.4); Monocytes # 1.1 K/mcL (0.0-1.3); Monocytes % 11.1 %; Platelet Count 127 K/mcL (140-400); Red Cell Distribution Width 15.8 % (11.5-14.5); Segmented Neutrophils % 68.8 %
[2017-11-02 07:33] LABS: INR 1.2; Prothrombin Time 13.2 Seconds (9.4-12.1)
[2017-11-02 07:36] LABS: BUN/Creatinine Ratio 16 (6-26); Blood Urea Nitrogen 14 mg/dL (8-23); Calcium 8.8 mg/dL (8.6-10.3); Carbon Dioxide 24 mEq/L (23-29); Chloride 106 mEq/L (98-107); Glucose 269 mg/dL (70-105); Osmolality,Calculated 294 (280-300); Potassium 4.3 mEq/L (3.5-5.1); Sodium 137 mEq/L (136-145); eGFR For African Americans > 60 (> 60); eGFR For Non-African Americans > 60 (> 60)
[2017-11-02] MEDS: Finasteride 5 MG TABLET PO SCH (09:20)
[2017-11-02] MEDS: Insulin DETEMIR 100 UNIT/ML X5UNITS SQ SCH (09:21)
[2017-11-02] MEDS: amLODIPine 5 MG TABLET PO SCH (09:21)
[2017-11-02] MEDS: Insulin LISPRO 300 UNITS/3 ML VIAL SQ SCH ×6 (09:21→16:52)
[2017-11-02] MEDS: Lisinopril 20 MG TABLET PO SCH (09:21)
[2017-11-02] MEDS: Ertapenem 1,000 MG in Water for inj. (sterile) 20 ML 10 ML IVP SCH (16:53)
--- NOTE | 2017-11-02 16:54 | Discharge Summary ---
Date of Encounter: 11/02/17 Time of Encounter: 16:50 - Discharge Diagnosis (1) Urinary tract infection due to Proteus Priority: Primary Status: Acute (2) KIRIT (acute kidney injury) Priority: Primary Status: Resolved (3) Diabetes Priority: Secondary Status: Chronic Qualifiers: Diabetes mellitus type: type 2 Diabetes mellitus complication status: with unspecified complications Diabetes mellitus terminal gauger insulin use: with terminal gauger use Qualified Code(s): E11.8 - Type 2 diabetes mellitus with unspecified complications; Z79.4 - longterm (current) use of insulin (4) History of coronary artery disease Priority: Secondary Status: Chronic (5) History of BPH Priority: Secondary Status: Chronic (6) A-fib Priority: Secondary Status: Chronic Qualifiers: Atrial fibrillation type: chronic Qualified Code(s): I48.2 - Chronic atrial fibrillation (7) Bipolar disorder Priority: Secondary Status: Chronic Qualifiers: Active/Remission status: remission status unspecified Qualified Code(s): F31.9 - Bipolar disorder, unspecified - Discharge Medications Home Medications: Acetaminophen [Tylenol] 650 mg PO Q4H PRN MDD 3-4gm 07/04/16 [History] Clopidogrel [Plavix] 75 mg PO DAILY 07/04/16 [History] Finasteride [Proscar] 5 mg PO DAILY 07/04/16 [History] Insulin ASPART [NovoLOG] 1 - 8 unit SQ AD 07/04/16 [History] Insulin Glargine [Lantus] 60 unit SQ BID 07/04/16 [History] Isosorbide MONOnitrate (24 HR) [Imdur] 60 mg PO DAILY 07/04/16 [History] Metformin HCl [Metformin HCl ER] 1,000 mg PO BID 07/04/16 [History] Nitroglycerin [Nitrostat] 0.4 mg SL Q5M PRN MDD 0.8 mg 07/04/16 [History] Ranitidine HCl [Heartburn Relief] 150 mg PO DAILY 07/04/16 [History] Sitagliptin Phosphate [Januvia] 50 mg PO DAILY 07/04/16 [History] Spironolactone [Aldactone] 25 mg PO BID 07/04/16 [History] Tamsulosin HCl [Flomax] 0.4 mg PO DAILY 07/04/16 [History] Citalopram Hydrobromide [Citalopram HBr] 10 mg PO DAILY 07/05/16 [History] Ergocalciferol (VITAMIN D2) [Vitamin D2 (50,000 UNIT)] 50,000 unit PO Q2W [History] Furosemide [Lasix] 80 mg PO BID 07/05/16 [History] Cyanocobalamin (Vitamin B-12) [Vitamin B12] 1,000 mcg PO DAILY 02/13/17 [History ] Insulin ASPART [Novolog] 18 unit SQ TIDWM 02/13/17 [History] Loperamide HCl [Imodium A-D] 2 mg PO Q6H PRN MDD 8 mg 02/13/17 [History] Atorvastatin [Lipitor] 40 mg PO HS 10/28/17 [History] Carvedilol [Coreg] 25 mg PO BID 10/28/17 [History] Digoxin [Lanoxin] 0.125 mg PO DAILY 10/28/17 [History] Diltiazem HCl [Diltiazem ER] 120 mg PO BID 10/28/17 [History] Eucalyptus/Menthol [Cough Drops] 1 each MM Q1H PRN 10/28/17 [History] Ipratropium/Albuterol Neb [Duoneb] 3 ml IH Q4H PRN 10/28/17 [History] Lisinopril [Zestril] 20 mg PO DAILY 10/28/17 [History] Nystatin POWDER [Nystop] 1 appl TP BID 10/28/17 [History] Omeprazole [PriLOSEC] 20 mg PO DAILY 10/28/17 [History] Ondansetron HCl [Zofran] 4 mg PO Q8H PRN 10/28/17 [History] Potassium Chloride [K-Tab ER] 20 meq PO DAILY 10/28/17 [History] Warfarin perPT [Coumadin perPT] 5.5 mg PO DAILY 10/28/17 [History] Divalproex Sodium [Depakote Sprinkle] 250 mg PO HS cap.sprink 11/02/17 [Rx] Doxazosin [Cardura] 8 mg PO DAILY tablet 11/02/17 [Rx] Allergies/Adverse Reactions: 3 Allergy/AdvReac Type Severity Reaction Status Date / Time No Known Allergies Allergy Verified 10/27/17 20:46 Date of admission: 10/28/17 04:09 Primary care physician: Chantel Narvaez Consults: 10/28/17 11:25 Consult to Import Export Clerk [CONS] Routine Reason for SW Consult: Patient previously from [facility] in [place]. Family and patient do not wish for return to facility and requesting [facility] in [place]. Discharging clinician: Mildred Amos Anticipated date of discharge: 11/02/17 - Patient Status Disposition: Transfer SNF Condition: Fair Functional capacity at discharge: wheelchair bound Overall status at discharge: patient is progressing back to baseline - Discharge Instructions Instructions: Urinary Tract Infection in Men (DC), Chronic Kidney Disease (DC) , Hypotension (DC) Follow Up With: Chantel Narvaez MD [Primary Care Provider] - (Patient will follow up with f pcp) Additional Instructions: F/up with PCP in 1-2 weeks - Diet and Activity Activity: as per physical therapy Diet: diabetic diet, low fat, low cholesterol, low salt diet Hospital course: Mr. Mueller is a 71 year old male halfway resident with the above medical problems, was initially sent from the halfway with severe nausea and vomiting. Patient was noted to have acute kidney injury secondary to dehydration from GI losses along with hyperkalemia. He was started on supportive care with IV hydration along with medical management of hyperkalemia. His labs gradually improved and his serum creatinine and potassium improved back to normal. He was also noted to have UTI and urine culture eventually grew multidrug resistant Proteus. Patient has been started on IV meropenem which was then switched to IV ertapenem and he is currently being discharged on IV ertapenem. Patient had problems with appropriate blood pressure control during this hospitalization. His antihypertensives were held initially due to hypotension and will gradually reintroduced. He is currently hemodynamically and medically stable for discharge back to halfway and he is in agreement with this plan. - Time Spent with Patient Total time spent providing and/or coordinating discharge services: Greater than 30 minutes (45 min) - Constitutional Vitals: Temp Pulse Resp BP Pulse Ox 97.4 F L 85 16 127/37 93 11/02/17 16:41 11/02/17 16:41 11/02/17 16:41 11/02/17 16:41 11/02/17 16:41 General appearance: Present: cooperative, A&O X 3, morbidly obese, answers questions appropriately - Respiratory Respiratory exam: Present: CTAB. Absent: accessory muscle use, rales, rhonchi, wheezes - Cardiovascular Cardiovascular exam: Present: irregular rhythm, +S1, +S2. Absent: diastolic murmur, gallop, rubs, systolic murmur
--- NOTE | 2017-11-02 16:59 | Physician Discharge Referral ---
ExtendedCare Referral Info Transfer To: [facility] Provider in Charge: Mildred Amos Provider in Charge after Transfer: PCP Institutional Level of Care: Skilled - Diagnosis (1) Urinary tract infection due to Proteus Priority: Primary Status: Acute (2) KIRIT (acute kidney injury) Priority: Primary Status: Resolved (3) Diabetes Priority: Secondary Status: Chronic (4) History of coronary artery disease Priority: Secondary Status: Chronic (5) History of BPH Priority: Secondary Status: Chronic (6) A-fib Priority: Secondary Status: Chronic (7) Bipolar disorder Priority: Secondary Status: Chronic Expected Duration of Placement: long term care administrator Prognosis: Fair Aware of Diagnosis: Patient Aware of Prognosis: Patient - Transfer Medications Home Medications: Acetaminophen [Tylenol] 650 mg PO Q4H PRN MDD 3-4gm 07/04/16 [History] Clopidogrel [Plavix] 75 mg PO DAILY 07/04/16 [History] Finasteride [Proscar] 5 mg PO DAILY 07/04/16 [History] Insulin ASPART [NovoLOG] 1 - 8 unit SQ AD 07/04/16 [History] Insulin Glargine [Lantus] 60 unit SQ BID 07/04/16 [History] Isosorbide MONOnitrate (24 HR) [Imdur] 60 mg PO DAILY 07/04/16 [History] Metformin HCl [Metformin HCl ER] 1,000 mg PO BID 07/04/16 [History] Nitroglycerin [Nitrostat] 0.4 mg SL Q5M PRN MDD 0.8 mg 07/04/16 [History] Ranitidine HCl [Heartburn Relief] 150 mg PO DAILY 07/04/16 [History] Sitagliptin Phosphate [Januvia] 50 mg PO DAILY 07/04/16 [History] Spironolactone [Aldactone] 25 mg PO BID 07/04/16 [History] Tamsulosin HCl [Flomax] 0.4 mg PO DAILY 07/04/16 [History] Citalopram Hydrobromide [Citalopram HBr] 10 mg PO DAILY 07/05/16 [History] Ergocalciferol (VITAMIN D2) [Vitamin D2 (50,000 UNIT)] 50,000 unit PO Q2W [History] Furosemide [Lasix] 80 mg PO BID 07/05/16 [History] Cyanocobalamin (Vitamin B-12) [Vitamin B12] 1,000 mcg PO DAILY 02/13/17 [History ] Insulin ASPART [Novolog] 18 unit SQ TIDWM 02/13/17 [History] Loperamide HCl [Imodium A-D] 2 mg PO Q6H PRN MDD 8 mg 02/13/17 [History] Atorvastatin [Lipitor] 40 mg PO HS 10/28/17 [History] Carvedilol [Coreg] 25 mg PO BID 10/28/17 [History] Digoxin [Lanoxin] 0.125 mg PO DAILY 10/28/17 [History] Diltiazem HCl [Diltiazem ER] 120 mg PO BID 10/28/17 [History] Eucalyptus/Menthol [Cough Drops] 1 each MM Q1H PRN 10/28/17 [History] Ipratropium/Albuterol Neb [Duoneb] 3 ml IH Q4H PRN 10/28/17 [History] Lisinopril [Zestril] 20 mg PO DAILY 10/28/17 [History] Nystatin POWDER [Nystop] 1 appl TP BID 10/28/17 [History] Omeprazole [PriLOSEC] 20 mg PO DAILY 10/28/17 [History] Ondansetron HCl [Zofran] 4 mg PO Q8H PRN 10/28/17 [History] Potassium Chloride [K-Tab ER] 20 meq PO DAILY 10/28/17 [History] Warfarin perPT [Coumadin perPT] 5.5 mg PO DAILY 10/28/17 [History] Divalproex Sodium [Depakote Sprinkle] 250 mg PO HS cap.sprink 11/02/17 [Rx] Doxazosin [Cardura] 8 mg PO DAILY tablet 11/02/17 [Rx] Allergies/Adverse Reactions: 3 Allergy/AdvReac Type Severity Reaction Status Date / Time No Known Allergies Allergy Verified 10/27/17 20:46 - Respiratory Orders Smoking Cessation: Smoking cessation has been advised. For more information, call the [place] Tobacco Quit Line at 8-781-PWQB-NOW. - Advance Directives Code Status: DNR-Arrest/Don't Intubate - Mobility Orders Chair - Rehabiliation Orders Rehab Potential: Poor Rehab Orders: Evaluation for Physical Therapy, Evaluation for Occupational Therapy - Diet Orders No Concentrated Sweets (diabetic), Cardiac CERTIFICATION: I certify that the transfer of the above named patient to an Extended Care Facility is necessary for the continuing treatment of the diagnosis listed. The above information is true and accurate reflection of patient's current condition. Confidential - Redisclosure prohibited without a patient's written consent.
[2017-11-02 17:11] VITALS: BP 127/73
[2017-11-02] MEDS ORDERED: WARFARIN PO ONE (18:00)
[2017-11-02] MEDS ORDERED: *HR* Warfarin 1 MG TABLET PO ONE (18:00)
== END 2017-11-02 18:54 | DRG 392 ==
LOC: 2ANU → SUATTDRO 10-28 04:09
PROVIDERS: ADMIT Internal Medicine; ATTEND Internal Medicine

== ENCOUNTER 2020-10-13 16:10 | Inpatient (IN) ==
[2020-10-13] MEDS ORDERED: Acetaminophen 325 MG TABLET PO PRN (20:04)
[2020-10-13] MEDS ORDERED: Naloxone 0.4 MG/ML INJ IVP PRN (20:04)
[2020-10-13] MEDS ORDERED: Ondansetron 4 MG/2 ML VIAL IVP PRN (20:04)
[2020-10-13] MEDS ORDERED: D5% in Water 1,000 ML IVC PRN (20:07)
[2020-10-13] MEDS ORDERED: Dextrose Gel 15 GM/37.5 ML TUBE PO PRN ×2 (20:07)
[2020-10-13] MEDS ORDERED: *HR* Dextrose 50 % in Water (Vial) 50 ML VIAL IVP PRN (20:07)
[2020-10-13] MEDS: Insulin LISPRO 300 UNITS/3 ML VIAL SUBQ SCH ×2 (20:47→20:48)
[2020-10-14] MEDS: levoFLOXacin 750 MG/150 ML 750 MG/150 ML BAG IVPB SCH ×2 (00:23→07:56)
[2020-10-14] MEDS ORDERED: *HR* LORazepam 0.5 MG TABLET PO ONE (03:21)
[2020-10-14 06:58] LABS: Basophils % 0.2 %; Eosinophils # 0.3 K/mcL (0.0-0.6); Eosinophils % 3.3 %; Hematocrit 38.7 % (37.5-50.1); Hemoglobin 11.3 g/dL (12.9-16.9); Immature Granulocytes % 0.7 % (0-4); Lymphocytes # 1.7 K/mcL (0.6-4.6); Lymphocytes % 19.3 %; Mean Corpuscular HGB Conc 29.2 g/dL (31.6-35.5); Mean Corpuscular Hemoglobin 27.6 pg (28.0-33.3); Mean Corpuscular Volume 94.6 fL (83.0-100.0); Monocytes # 0.9 K/mcL (0.0-1.3); Monocytes % 10.2 %; Platelet Count 193 K/mcL (140-400); Red Blood Count 4.09 M/mcL (4.19-5.50); Red Cell Distribution Width 15.1 % (11.5-14.5); Segmented Neutrophils % 66.3 %
[2020-10-14 06:59] LABS: INR 1.8; Prothrombin Time 20.5 Seconds (9.4-12.1)
[2020-10-14 07:08] LABS: INR 1.8; Prothrombin Time 20.6 Seconds (9.4-12.1)
[2020-10-14] MEDS: Insulin LISPRO 300 UNITS/3 ML VIAL SUBQ SCH ×4 (07:22→20:12)
[2020-10-14 07:24] LABS: BUN/Creatinine Ratio 17 (6-26); Blood Urea Nitrogen 14 mg/dL (8-23); Calcium 10.1 mg/dL (8.6-10.3); Carbon Dioxide 37 mEq/L (23-29); Chloride 98 mEq/L (98-107); Glucose 109 mg/dL (70-105); Magnesium 1.7 mg/dL (1.6-2.6); Osmolality,Calculated 293 (280-300); Phosphorous 2.9 mg/dL (2.7-4.5); Potassium 4.1 mEq/L (3.5-5.1); Sodium 141 mEq/L (136-145); eGFR For African Americans > 60 (> 60); eGFR For Non-African Americans > 60 (> 60)
[2020-10-14] MEDS: Isosorbide MONOnitrate (24 HR) 30 MG TAB.ER.24H PO SCH (07:49)
[2020-10-14] MEDS: GuaiFENesin Liq 200 MG/10 ML UDC PO SCH ×2 (07:49→19:55)
[2020-10-14] MEDS: Mirtazapine 15 MG TABLET PO SCH (07:49)
[2020-10-14] MEDS: carvediloL 25 MG TABLET PO SCH ×2 (07:49→17:15)
[2020-10-14] MEDS: Finasteride 5 MG TABLET PO SCH (07:50)
[2020-10-14] MEDS ORDERED: *HR* Succinylcholine 200 MG/10 ML VIAL IVP ONE (08:55)
[2020-10-14] MEDS ORDERED: Lidocaine -MPF 4% 5 ML AMPUL ONE (08:56)
[2020-10-14] MEDS ORDERED: *HR* FentaNYL (PF) 100 MCG/2 ML VIAL ONE (09:00)
[2020-10-14] MEDS ORDERED: Dexamethasone 4 MG/ML VIAL ONE (09:03)
[2020-10-14] MEDS ORDERED: Lidocaine -MPF 2% 2 ML VIAL ONE (09:03)
[2020-10-14] MEDS ORDERED: Ondansetron 4 MG/2 ML VIAL ONE (09:03)
[2020-10-14] MEDS ORDERED: *HR* Vasopressin 20 UNIT/ML VIAL ONE (09:20)
[2020-10-14 09:32] LABS: Adenovirus Not Detected (Not Detect); Bordetella Pertussis Not Detected (Not Detect); Chlamydophila pneumoniae Not Detected (Not Detect); Coronavirus 229E Not Detected (Not Detect); Coronavirus HKU1 Not Detected (Not Detect); Coronavirus NL63 Not Detected (Not Detect); Coronavirus OC43 Not Detected (Not Detect); Human Metapneumovirus Not Detected (Not Detect); Human Rhinovirus/Enterovirus DETECTED (Not Detect); Influenza A Subtype 2009 H1 Not Detected (Not Detect); Influenza B Not Detected (Not Detect); Mycoplasma pneumoniae Not Detected (Not Detect); Parainfluenza Virus 1 Not Detected (Not Detect); Parainfluenza Virus 2 Not Detected (Not Detect); Parainfluenza Virus 3 Not Detected (Not Detect); Parainfluenza Virus 4 Not Detected (Not Detect); Respiratory Syncytial Virus Not Detected (Not Detect); SARS-CoV-2 Not Detected (Not Detect)
[2020-10-14] MEDS: Insulin DETEMIR 100 UNIT/ML X5UNITS SUBQ SCH ×2 (10:25→20:08)
[2020-10-14] MEDS ORDERED: Sugammadex Sodium 200 MG/2 ML VIAL IV ONE (11:11)
[2020-10-14] MEDS ORDERED: 0.9 % Sodium Chloride 500 ML ONE (12:04)
[2020-10-14 12:17] LABS: ABG Base Excess 13 mEq/L (-2 to 3); ABG HCO3 44 mEq/L (21-27); ABG Oxygen Saturation 87 % (95-98); ABG PCO2 106 mmHg (35-45); ABG PH 7.23 pH Units (7.32-7.45); ABG PO2 69 mmHg (85-104); ABG TCO2 48 mEq/L (20-26); Blood Gas Pressure Support 16 cm H2O
[2020-10-14 12:56] LABS: ABG Base Excess 12 mEq/L (-2 to 3); ABG HCO3 43 mEq/L (21-27); ABG Oxygen Saturation 90 % (95-98); ABG PCO2 95 mmHg (35-45); ABG PH 7.27 pH Units (7.32-7.45); ABG PO2 72 mmHg (85-104); ABG TCO2 46 mEq/L (20-26); Blood Gas VT 600 cc
[2020-10-14 14:07] LABS: Source of Body Fluid LEFT LOWER LOBE LUNG
[2020-10-14 14:13] LABS: ABG Base Excess 13 mEq/L (-2 to 3); ABG HCO3 45 mEq/L (21-27); ABG Oxygen Saturation 91 % (95-98); ABG PCO2 100 mmHg (35-45); ABG PH 7.26 pH Units (7.32-7.45); ABG PO2 76 mmHg (85-104); ABG TCO2 48 mEq/L (20-26); Blood Gas VT 600 cc
[2020-10-14] MEDS ORDERED: Ipratropium/Albuterol Neb 3 ML IH SCH (16:20)
[2020-10-14] MEDS: Ipratropium/Albuterol Neb 3 ML IH SCH ×2 (17:03→21:51)
[2020-10-14] MEDS: MethylPREDNISolone 40 MG/ML VIAL IVP SCH (19:55)
[2020-10-14 20:57] LABS: Appearance of Body Fluid Cloudy (Clear); Volume of Body Fluid 15 mL
[2020-10-14 21:00] LABS: ABG Base Excess 11 mEq/L (-2 to 3); ABG HCO3 40 mEq/L (21-27); ABG Oxygen Saturation 94 % (95-98); ABG PCO2 76 mmHg (35-45); ABG PH 7.33 pH Units (7.32-7.45); ABG PO2 78 mmHg (85-104); ABG TCO2 43 mEq/L (20-26); Blood Gas VT 600 cc
[2020-10-14] MEDS: *HR* Heparin 5,000 UNIT/ML VIAL SQ SCH (21:24)
[2020-10-15] MEDS: Ipratropium/Albuterol Neb 3 ML IH SCH ×4 (03:37→21:21)
[2020-10-15 05:22] LABS: Basophils % 0.1 %; Hematocrit 40.1 % (37.5-50.1); Hemoglobin 11.7 g/dL (12.9-16.9); Lymphocytes # 0.9 K/mcL (0.6-4.6); Lymphocytes % 10.7 %; Mean Corpuscular HGB Conc 29.2 g/dL (31.6-35.5); Mean Corpuscular Hemoglobin 27.5 pg (28.0-33.3); Mean Corpuscular Volume 94.1 fL (83.0-100.0); Mean Platelet Volume 10.6 fL (9.4-12.4); Monocytes # 0.1 K/mcL (0.0-1.3); Monocytes % 1.6 %; Platelet Count 195 K/mcL (140-400); Red Blood Count 4.26 M/mcL (4.19-5.50); Red Cell Distribution Width 15.1 % (11.5-14.5); Segmented Neutrophils % 86.6 %
[2020-10-15 05:44] LABS: BUN/Creatinine Ratio 21 (6-26); Blood Urea Nitrogen 20 mg/dL (8-23); Calcium 10.8 mg/dL (8.6-10.3); Carbon Dioxide 32 mEq/L (23-29); Chloride 96 mEq/L (98-107); Glucose 204 mg/dL (70-105); Osmolality,Calculated 298 (280-300); Potassium 4.7 mEq/L (3.5-5.1); Sodium 140 mEq/L (136-145); eGFR For African Americans > 60 (> 60); eGFR For Non-African Americans > 60 (> 60)
[2020-10-15] MEDS: *HR* Heparin 5,000 UNIT/ML VIAL SQ SCH (05:50)
[2020-10-15] MEDS ORDERED: Cefepime HCl 2,000 MG in Water for inj. (sterile) 20 ML IVP SCH ×2 (08:00→16:00)
[2020-10-15] MEDS: carvediloL 25 MG TABLET PO SCH ×2 (08:56→17:38)
[2020-10-15] MEDS: Insulin LISPRO 300 UNITS/3 ML VIAL SUBQ SCH ×4 (08:56→20:49)
[2020-10-15] MEDS: Finasteride 5 MG TABLET PO SCH (08:58)
[2020-10-15] MEDS: Insulin DETEMIR 100 UNIT/ML X5UNITS SUBQ SCH ×2 (08:58→20:47)
[2020-10-15] MEDS: Mirtazapine 15 MG TABLET PO SCH (08:58)
[2020-10-15] MEDS: Isosorbide MONOnitrate (24 HR) 30 MG TAB.ER.24H PO SCH (08:58)
[2020-10-15] MEDS: GuaiFENesin Liq 200 MG/10 ML UDC PO SCH ×2 (08:59→20:46)
[2020-10-15] MEDS: MethylPREDNISolone 40 MG/ML VIAL IVP SCH ×2 (08:59→20:47)
[2020-10-15] MEDS ORDERED: Furosemide 40 MG/4 ML VIAL IVP SCH (10:30)
[2020-10-15] MEDS ORDERED: Azithromycin 500 MG in 0.9 % Sodium Chloride 250 ML IVPB SCH (11:00)
[2020-10-15] MEDS ORDERED: Ondansetron 4 MG/2 ML VIAL IVP PRN (13:22)
[2020-10-15] MEDS ORDERED: D5% in Water 1,000 ML IVC PRN (13:22)
[2020-10-15] MEDS ORDERED: Dextrose Gel 15 GM/37.5 ML TUBE PO PRN ×2 (13:22)
[2020-10-15] MEDS ORDERED: Acetaminophen 325 MG TABLET PO PRN (13:22)
[2020-10-15] MEDS ORDERED: *HR* Dextrose 50 % in Water (Vial) 50 ML VIAL IVP PRN (13:22)
[2020-10-15] MEDS ORDERED: Naloxone 0.4 MG/ML INJ IVP PRN (13:22)
[2020-10-15] MEDS ORDERED: *HR* Rivaroxaban 10 MG TABLET PO SCH (17:00)
[2020-10-15] MEDS: *HR* Rivaroxaban 10 MG TABLET PO SCH (17:38)
[2020-10-16] MEDS: Ipratropium/Albuterol Neb 3 ML IH SCH ×4 (03:33→21:49)
[2020-10-16] MEDS: Cefepime HCl 2,000 MG in Water for inj. (sterile) 20 ML IVP SCH ×3 (05:24→23:07)
[2020-10-16] MEDS: carvediloL 25 MG TABLET PO SCH ×2 (07:49→16:48)
[2020-10-16] MEDS: Finasteride 5 MG TABLET PO SCH (07:49)
[2020-10-16] MEDS: Mirtazapine 15 MG TABLET PO SCH (07:49)
[2020-10-16] MEDS: Insulin LISPRO 300 UNITS/3 ML VIAL SUBQ SCH ×4 (07:50→20:28)
[2020-10-16] MEDS: GuaiFENesin Liq 200 MG/10 ML UDC PO SCH ×2 (07:50→20:20)
[2020-10-16] MEDS: MethylPREDNISolone 40 MG/ML VIAL IVP SCH ×2 (07:50→20:20)
[2020-10-16] MEDS: Furosemide 40 MG/4 ML VIAL IVP SCH (07:50)
[2020-10-16] MEDS: Insulin DETEMIR 100 UNIT/ML X5UNITS SUBQ SCH ×2 (08:06→20:28)
[2020-10-16] MEDS ORDERED: Isosorbide MONOnitrate (24 HR) 30 MG TAB.ER.24H PO SCH (09:00)
[2020-10-16 09:36] LABS: ABG Base Excess 13 mEq/L (-2 to 3); ABG HCO3 41 mEq/L (21-27); ABG Oxygen Saturation 90 % (95-98); ABG PCO2 67 mmHg (35-45); ABG PO2 61 mmHg (85-104); ABG TCO2 43 mEq/L (20-26)
[2020-10-16 10:09] LABS: Basophils % 0.1 %; Hematocrit 34.5 % (37.5-50.1); Hemoglobin 10.4 g/dL (12.9-16.9); Lymphocytes # 0.7 K/mcL (0.6-4.6); Lymphocytes % 7.8 %; Mean Corpuscular HGB Conc 30.1 g/dL (31.6-35.5); Mean Corpuscular Volume 89.6 fL (83.0-100.0); Mean Platelet Volume 11.1 fL (9.4-12.4); Monocytes # 0.5 K/mcL (0.0-1.3); Monocytes % 5.8 %; Neutrophils # 7.9 K/mcL (1.6-8.9); Platelet Count 186 K/mcL (140-400); Red Blood Count 3.85 M/mcL (4.19-5.50); Red Cell Distribution Width 15.2 % (11.5-14.5); Segmented Neutrophils % 85.3 %; White Blood Count 9.3 K/mcL (4.3-11.1)
[2020-10-16 10:31] LABS: Alanine Aminotransferase 6 Units/L (7-52); Albumin 3.5 g/dL (3.5-5.7); Alkaline Phosphatase 50 Units/L (34-104); Aspartate Amino Transferase 13 Units/L (13-39); BUN/Creatinine Ratio 32 (6-26); Bilirubin,Total 0.4 mg/dL (0.3-1.0); Blood Urea Nitrogen 29 mg/dL (8-23); Carbon Dioxide 35 mEq/L (23-29); Chloride 94 mEq/L (98-107); Globulin 3.4 g/dL (2.4-3.5); Glucose 248 mg/dL (70-105); Magnesium 1.8 mg/dL (1.6-2.6); Osmolality,Calculated 294 (280-300); Phosphorous 2.5 mg/dL (2.7-4.5); Potassium 3.5 mEq/L (3.5-5.1); Sodium 135 mEq/L (136-145); Total Protein 6.9 g/dL (6.4-8.9); eGFR For African Americans > 60 (> 60); eGFR For Non-African Americans > 60 (> 60)
[2020-10-16] MEDS ORDERED: Cefepime HCl 2,000 MG in Water for inj. (sterile) 20 ML IVP SCH (12:00)
[2020-10-16] MEDS: Azithromycin 500 MG in 0.9 % Sodium Chloride 250 ML IVPB SCH (12:31)
[2020-10-16] MEDS: *HR* Rivaroxaban 10 MG TABLET PO SCH (16:48)
[2020-10-16] MEDS: Sennosides 8.6 MG TABLET PO SCH (20:21)
[2020-10-16] MEDS: DilTIAZem SR (12hr) 60 MG CAP.ER.12H PO SCH (20:22)
[2020-10-16] MEDS: Magnesium Oxide 400 MG TABLET PO SCH (20:22)
[2020-10-16] MEDS: Melatonin 3 MG TABLET PO SCH (20:23)
[2020-10-17 01:54] LABS: Basophils % 0.1 %; Hematocrit 35.5 % (37.5-50.1); Hemoglobin 10.8 g/dL (12.9-16.9); Lymphocytes # 0.7 K/mcL (0.6-4.6); Lymphocytes % 7.4 %; Mean Corpuscular HGB Conc 30.4 g/dL (31.6-35.5); Mean Corpuscular Hemoglobin 27.3 pg (28.0-33.3); Mean Corpuscular Volume 89.9 fL (83.0-100.0); Mean Platelet Volume 11.8 fL (9.4-12.4); Monocytes # 0.6 K/mcL (0.0-1.3); Monocytes % 6.5 %; Neutrophils # 7.6 K/mcL (1.6-8.9); Platelet Count 179 K/mcL (140-400); Red Blood Count 3.95 M/mcL (4.19-5.50); White Blood Count 8.9 K/mcL (4.3-11.1)
[2020-10-17 02:15] LABS: Alanine Aminotransferase 9 Units/L (7-52); Albumin 3.4 g/dL (3.5-5.7); Alkaline Phosphatase 50 Units/L (34-104); Aspartate Amino Transferase 11 Units/L (13-39); BUN/Creatinine Ratio 37 (6-26); Bilirubin,Total 0.3 mg/dL (0.3-1.0); Blood Urea Nitrogen 31 mg/dL (8-23); Calcium 9.9 mg/dL (8.6-10.3); Carbon Dioxide 35 mEq/L (23-29); Chloride 93 mEq/L (98-107); Globulin 3.3 g/dL (2.4-3.5); Glucose 287 mg/dL (70-105); Magnesium 2.3 mg/dL (1.6-2.6); Osmolality,Calculated 295 (280-300); Potassium 3.8 mEq/L (3.5-5.1); Sodium 134 mEq/L (136-145); Total Protein 6.7 g/dL (6.4-8.9); eGFR For African Americans > 60 (> 60); eGFR For Non-African Americans > 60 (> 60)
[2020-10-17 02:23] LABS: % Iron Saturation 8 % (20-55); Iron 29 mcg/dL (65-175); Transferrin 248 mg/dL (203-362)
[2020-10-17 02:35] LABS: Ferritin 49 ng/mL (20-250)
[2020-10-17 03:11] LABS: Folate 21.6 ng/mL (3.0-16.0)
[2020-10-17] MEDS: Ipratropium/Albuterol Neb 3 ML IH SCH ×4 (04:28→22:15)
[2020-10-17] MEDS: Cefepime HCl 2,000 MG in Water for inj. (sterile) 20 ML IVP SCH ×3 (05:23→23:16)
[2020-10-17] MEDS: Insulin LISPRO 300 UNITS/3 ML VIAL SUBQ SCH ×5 (07:37→22:17)
[2020-10-17] MEDS: MethylPREDNISolone 40 MG/ML VIAL IVP SCH ×2 (07:38→23:15)
[2020-10-17] MEDS: Furosemide 40 MG/4 ML VIAL IVP SCH (07:39)
[2020-10-17] MEDS: DilTIAZem SR (12hr) 60 MG CAP.ER.12H PO SCH ×2 (07:39→20:31)
[2020-10-17] MEDS: Spironolactone 12.5 MG TABLET PO SCH (07:40)
[2020-10-17] MEDS: Cholecalciferol (D-3) 1,000 UNIT (25MCG) TABLET PO SCH (07:40)
[2020-10-17] MEDS: Finasteride 5 MG TABLET PO SCH (07:40)
[2020-10-17] MEDS: carvediloL 25 MG TABLET PO SCH ×2 (07:41→16:07)
[2020-10-17] MEDS: Sennosides 8.6 MG TABLET PO SCH ×2 (07:41→20:31)
[2020-10-17] MEDS: Mirtazapine 15 MG TABLET PO SCH (07:43)
[2020-10-17] MEDS: Cyanocobalamin (B-12) 1,000 MCG TABLET PO SCH (07:44)
[2020-10-17] MEDS: Isosorbide MONOnitrate (24 HR) 30 MG TAB.ER.24H PO SCH (07:44)
[2020-10-17] MEDS: GuaiFENesin Liq 200 MG/10 ML UDC PO SCH ×2 (07:45→20:30)
[2020-10-17] MEDS: Magnesium Oxide 400 MG TABLET PO SCH ×2 (07:45→20:31)
[2020-10-17] MEDS: Insulin DETEMIR 100 UNIT/ML X5UNITS SUBQ SCH ×2 (07:59→22:16)
[2020-10-17] MEDS: Azithromycin 500 MG in 0.9 % Sodium Chloride 250 ML IVPB SCH (11:36)
[2020-10-17] MEDS ORDERED: Iron Sucrose Complex 400 MG in 0.9 % Sodium Chloride 250 ML IVPB ONE (13:53)
[2020-10-17] MEDS: *HR* Rivaroxaban 10 MG TABLET PO SCH (16:07)
[2020-10-17 17:33] LABS: Influenza A PCR Body Fluid NOT DETECTED; Influenza B PCR Body Fluid NOT DETECTED
[2020-10-17] MEDS: Melatonin 3 MG TABLET PO SCH (20:30)
[2020-10-18 00:17] LABS: RSV PCR Body Fluid NOT DETECTED; RVP Body Fluid Source NOT PROVIDED
[2020-10-18] MEDS: Ipratropium/Albuterol Neb 3 ML IH SCH ×4 (03:48→21:28)
[2020-10-18 04:38] LABS: Basophils % 0.2 %; Hematocrit 35.1 % (37.5-50.1); Hemoglobin 10.6 g/dL (12.9-16.9); Immature Granulocytes % 2.1 % (0-4); Lymphocytes # 0.5 K/mcL (0.6-4.6); Lymphocytes % 5.4 %; Mean Corpuscular HGB Conc 30.2 g/dL (31.6-35.5); Mean Corpuscular Hemoglobin 27.8 pg (28.0-33.3); Mean Corpuscular Volume 92.1 fL (83.0-100.0); Monocytes # 0.7 K/mcL (0.0-1.3); Neutrophils # 8.2 K/mcL (1.6-8.9); Platelet Count 160 K/mcL (140-400); Red Blood Count 3.81 M/mcL (4.19-5.50); Red Cell Distribution Width 15.1 % (11.5-14.5); Segmented Neutrophils % 85.3 %; White Blood Count 9.6 K/mcL (4.3-11.1)
[2020-10-18 04:51] LABS: Alanine Aminotransferase 19 Units/L (7-52); Albumin 3.2 g/dL (3.5-5.7); Albumin/Globulin Ratio 1.1 (1.1-2.2); Alkaline Phosphatase 54 Units/L (34-104); Aspartate Amino Transferase 12 Units/L (13-39); BUN/Creatinine Ratio 30 (6-26); Bilirubin,Total 0.3 mg/dL (0.3-1.0); Blood Urea Nitrogen 42 mg/dL (8-23); Calcium 9.5 mg/dL (8.6-10.3); Carbon Dioxide 34 mEq/L (23-29); Chloride 96 mEq/L (98-107); Glucose 441 mg/dL (70-105); Magnesium 2.4 mg/dL (1.6-2.6); Osmolality,Calculated 310 (280-300); Phosphorous 2.1 mg/dL (2.7-4.5); Sodium 135 mEq/L (136-145); Total Protein 6.2 g/dL (6.4-8.9); eGFR For African Americans > 60 (> 60); eGFR For Non-African Americans 50 (> 60)
[2020-10-18] MEDS: Cefepime HCl 2,000 MG in Water for inj. (sterile) 20 ML IVP SCH ×3 (05:33→20:20)
[2020-10-18] MEDS: Magnesium Oxide 400 MG TABLET PO SCH ×2 (07:28→20:19)
[2020-10-18] MEDS: carvediloL 25 MG TABLET PO SCH ×2 (07:28→16:53)
[2020-10-18] MEDS: GuaiFENesin Liq 200 MG/10 ML UDC PO SCH ×2 (07:28→20:19)
[2020-10-18] MEDS: Finasteride 5 MG TABLET PO SCH (07:28)
[2020-10-18] MEDS: MethylPREDNISolone 40 MG/ML VIAL IVP SCH ×2 (07:29→20:20)
[2020-10-18] MEDS: Furosemide 40 MG/4 ML VIAL IVP SCH (07:29)
[2020-10-18] MEDS: Isosorbide MONOnitrate (24 HR) 30 MG TAB.ER.24H PO SCH (07:29)
[2020-10-18] MEDS: Cholecalciferol (D-3) 1,000 UNIT (25MCG) TABLET PO SCH (07:29)
[2020-10-18] MEDS: Sennosides 8.6 MG TABLET PO SCH ×2 (07:29→20:19)
[2020-10-18] MEDS: Mirtazapine 15 MG TABLET PO SCH (07:30)
[2020-10-18] MEDS: Spironolactone 12.5 MG TABLET PO SCH (07:32)
[2020-10-18] MEDS: DilTIAZem SR (12hr) 60 MG CAP.ER.12H PO SCH ×2 (07:32→20:20)
[2020-10-18] MEDS: Insulin DETEMIR 100 UNIT/ML X5UNITS SUBQ SCH ×2 (07:32→20:21)
[2020-10-18] MEDS: Cyanocobalamin (B-12) 1,000 MCG TABLET PO SCH (07:33)
[2020-10-18] MEDS: Insulin LISPRO 300 UNITS/3 ML VIAL SUBQ SCH ×7 (07:39→20:22)
[2020-10-18] MEDS: Azithromycin 500 MG in 0.9 % Sodium Chloride 250 ML IVPB SCH (11:37)
[2020-10-18] MEDS: *HR* Rivaroxaban 10 MG TABLET PO SCH (16:53)
[2020-10-18] MEDS: Melatonin 3 MG TABLET PO SCH (20:19)
[2020-10-18] MEDS: Budesonide/Formoterol 80/4.5 1 PUFF INH IH SCH (21:28)
[2020-10-19] MEDS: Ipratropium/Albuterol Neb 3 ML IH SCH ×4 (03:46→22:25)
[2020-10-19 05:04] LABS: Basophils % 0.3 %; Hematocrit 35.3 % (37.5-50.1); Hemoglobin 10.8 g/dL (12.9-16.9); Immature Granulocytes % 2.5 % (0-4); Lymphocytes # 0.8 K/mcL (0.6-4.6); Lymphocytes % 5.9 %; Mean Corpuscular HGB Conc 30.6 g/dL (31.6-35.5); Mean Corpuscular Hemoglobin 27.5 pg (28.0-33.3); Mean Corpuscular Volume 89.8 fL (83.0-100.0); Mean Platelet Volume 11.9 fL (9.4-12.4); Monocytes # 0.6 K/mcL (0.0-1.3); Monocytes % 4.2 %; Neutrophils # 11.5 K/mcL (1.6-8.9); Nucleated Red Blood Cells 0.2 /100 WBC (0); Platelet Count 158 K/mcL (140-400); Red Blood Count 3.93 M/mcL (4.19-5.50); Segmented Neutrophils % 87.1 %; White Blood Count 13.2 K/mcL (4.3-11.1)
[2020-10-19 05:22] LABS: Alanine Aminotransferase 19 Units/L (7-52); Albumin 3.3 g/dL (3.5-5.7); Albumin/Globulin Ratio 1.1 (1.1-2.2); Alkaline Phosphatase 52 Units/L (34-104); Aspartate Amino Transferase 11 Units/L (13-39); BUN/Creatinine Ratio 48 (6-26); Bilirubin,Total 0.3 mg/dL (0.3-1.0); Blood Urea Nitrogen 46 mg/dL (8-23); Calcium 9.6 mg/dL (8.6-10.3); Carbon Dioxide 33 mEq/L (23-29); Chloride 96 mEq/L (98-107); Glucose 351 mg/dL (70-105); Magnesium 2.2 mg/dL (1.6-2.6); Osmolality,Calculated 304 (280-300); Phosphorous 1.8 mg/dL (2.7-4.5); Potassium 3.8 mEq/L (3.5-5.1); Sodium 134 mEq/L (136-145); Total Protein 6.3 g/dL (6.4-8.9); eGFR For African Americans > 60 (> 60); eGFR For Non-African Americans > 60 (> 60)
[2020-10-19] MEDS: Cefepime HCl 2,000 MG in Water for inj. (sterile) 20 ML IVP SCH ×3 (05:47→22:31)
[2020-10-19] MEDS ORDERED: Insulin Human Regular 10 UNIT in 0.9 % Sodium Chloride 10 ML IV ONE (07:42)
[2020-10-19] MEDS: Insulin LISPRO 300 UNITS/3 ML VIAL SUBQ SCH ×7 (08:31→20:37)
[2020-10-19] MEDS: Insulin DETEMIR 100 UNIT/ML X5UNITS SUBQ SCH ×2 (08:32→20:37)
[2020-10-19] MEDS: MethylPREDNISolone 40 MG/ML VIAL IVP SCH (08:37)
[2020-10-19] MEDS: GuaiFENesin Liq 200 MG/10 ML UDC PO SCH ×2 (08:37→20:36)
[2020-10-19] MEDS: Cyanocobalamin (B-12) 1,000 MCG TABLET PO SCH (08:38)
[2020-10-19] MEDS: Furosemide 40 MG/4 ML VIAL IVP SCH (08:38)
[2020-10-19] MEDS: Cholecalciferol (D-3) 1,000 UNIT (25MCG) TABLET PO SCH (08:39)
[2020-10-19] MEDS: carvediloL 25 MG TABLET PO SCH ×2 (08:39→16:07)
[2020-10-19] MEDS: Finasteride 5 MG TABLET PO SCH (08:39)
[2020-10-19] MEDS: Magnesium Oxide 400 MG TABLET PO SCH ×2 (08:39→20:36)
[2020-10-19] MEDS: Mirtazapine 15 MG TABLET PO SCH (08:40)
[2020-10-19] MEDS: Sennosides 8.6 MG TABLET PO SCH ×2 (08:40→20:36)
[2020-10-19] MEDS: Isosorbide MONOnitrate (24 HR) 30 MG TAB.ER.24H PO SCH (08:44)
[2020-10-19] MEDS: Spironolactone 12.5 MG TABLET PO SCH (08:44)
[2020-10-19] MEDS: DilTIAZem SR (12hr) 60 MG CAP.ER.12H PO SCH ×2 (08:44→20:35)
[2020-10-19] MEDS: Budesonide/Formoterol 80/4.5 1 PUFF INH IH SCH ×2 (10:00→22:26)
[2020-10-19] MEDS: Azithromycin 500 MG in 0.9 % Sodium Chloride 250 ML IVPB SCH (11:48)
[2020-10-19] MEDS: *HR* Rivaroxaban 10 MG TABLET PO SCH (16:07)
[2020-10-19] MEDS: Melatonin 3 MG TABLET PO SCH (20:34)
[2020-10-20] MEDS: Ipratropium/Albuterol Neb 3 ML IH SCH ×4 (03:56→22:22)
[2020-10-20 06:25] LABS: Basophils % 0.2 %; Hematocrit 33.9 % (37.5-50.1); Hemoglobin 10.6 g/dL (12.9-16.9); Immature Granulocytes % 3.3 % (0-4); Lymphocytes # 0.9 K/mcL (0.6-4.6); Lymphocytes % 6.6 %; Mean Corpuscular HGB Conc 31.3 g/dL (31.6-35.5); Mean Corpuscular Hemoglobin 27.9 pg (28.0-33.3); Mean Corpuscular Volume 89.2 fL (83.0-100.0); Mean Platelet Volume 11.8 fL (9.4-12.4); Monocytes # 1.3 K/mcL (0.0-1.3); Monocytes % 9.2 %; Nucleated Red Blood Cells 0.3 /100 WBC (0); Platelet Count 156 K/mcL (140-400); Red Cell Distribution Width 15.2 % (11.5-14.5); Segmented Neutrophils % 80.7 %; White Blood Count 13.7 K/mcL (4.3-11.1)
[2020-10-20] MEDS: Cefepime HCl 2,000 MG in Water for inj. (sterile) 20 ML IVP SCH ×3 (06:25→21:44)
[2020-10-20 06:46] LABS: Alanine Aminotransferase 22 Units/L (7-52); Albumin 3.2 g/dL (3.5-5.7); Albumin/Globulin Ratio 1.2 (1.1-2.2); Alkaline Phosphatase 55 Units/L (34-104); Aspartate Amino Transferase 11 Units/L (13-39); BUN/Creatinine Ratio 44 (6-26); Bilirubin,Total 0.3 mg/dL (0.3-1.0); Blood Urea Nitrogen 42 mg/dL (8-23); Calcium 8.9 mg/dL (8.6-10.3); Carbon Dioxide 32 mEq/L (23-29); Chloride 96 mEq/L (98-107); Globulin 2.7 g/dL (2.4-3.5); Glucose 349 mg/dL (70-105); Osmolality,Calculated 302 (280-300); Phosphorous 2.2 mg/dL (2.7-4.5); Potassium 3.7 mEq/L (3.5-5.1); Sodium 134 mEq/L (136-145); Total Protein 5.9 g/dL (6.4-8.9); eGFR For African Americans > 60 (> 60); eGFR For Non-African Americans > 60 (> 60)
[2020-10-20] MEDS: MethylPREDNISolone 40 MG/ML VIAL IVP SCH (07:46)
[2020-10-20] MEDS: Insulin DETEMIR 100 UNIT/ML X5UNITS SUBQ SCH ×2 (07:46→21:44)
[2020-10-20] MEDS: Furosemide 40 MG/4 ML VIAL IVP SCH (07:46)
[2020-10-20] MEDS: Finasteride 5 MG TABLET PO SCH (07:47)
[2020-10-20] MEDS: Cyanocobalamin (B-12) 1,000 MCG TABLET PO SCH (07:47)
[2020-10-20] MEDS: Magnesium Oxide 400 MG TABLET PO SCH ×2 (07:47→21:42)
[2020-10-20] MEDS: DilTIAZem SR (12hr) 60 MG CAP.ER.12H PO SCH ×2 (07:48→21:42)
[2020-10-20] MEDS: Sennosides 8.6 MG TABLET PO SCH ×2 (07:48→21:41)
[2020-10-20] MEDS: carvediloL 25 MG TABLET PO SCH ×2 (07:48→17:21)
[2020-10-20] MEDS: Cholecalciferol (D-3) 1,000 UNIT (25MCG) TABLET PO SCH (07:48)
[2020-10-20] MEDS: GuaiFENesin Liq 200 MG/10 ML UDC PO SCH ×2 (07:49→21:47)
[2020-10-20] MEDS: Spironolactone 12.5 MG TABLET PO SCH (07:49)
[2020-10-20] MEDS: Isosorbide MONOnitrate (24 HR) 30 MG TAB.ER.24H PO SCH (07:49)
[2020-10-20] MEDS: Mirtazapine 15 MG TABLET PO SCH (07:51)
[2020-10-20] MEDS: Insulin LISPRO 300 UNITS/3 ML VIAL SUBQ SCH ×7 (07:55→21:46)
[2020-10-20] MEDS: Budesonide/Formoterol 80/4.5 1 PUFF INH IH SCH ×2 (10:59→22:23)
[2020-10-20] MEDS: Azithromycin 500 MG in 0.9 % Sodium Chloride 250 ML IVPB SCH (11:49)
[2020-10-20] MEDS: *HR* Rivaroxaban 10 MG TABLET PO SCH (17:21)
[2020-10-20] MEDS: Melatonin 3 MG TABLET PO SCH (21:42)
[2020-10-21] MEDS: Ipratropium/Albuterol Neb 3 ML IH SCH ×3 (03:36→15:22)
[2020-10-21] MEDS: Cefepime HCl 2,000 MG in Water for inj. (sterile) 20 ML IVP SCH ×2 (05:22→15:35)
[2020-10-21 05:41] LABS: Mean Platelet Volume 12.3 fL (9.4-12.4); Nucleated Red Blood Cells 0.5 /100 WBC (0); Segmented Neutrophils % 78.5 %
[2020-10-21 05:43] LABS: Basophils # 0.1 K/mcL (0.0-0.2); Basophils % 0.6 %; Eosinophils % 0.2 %; Hematocrit 36.1 % (37.5-50.1); Hemoglobin 11.3 g/dL (12.9-16.9); Immature Granulocytes % 4.7 % (0-4); Immature Platelets 8.8 % (1.1-6.1); Lymphocytes # 1.2 K/mcL (0.6-4.6); Lymphocytes % 6.6 %; Mean Corpuscular HGB Conc 31.3 g/dL (31.6-35.5); Mean Corpuscular Hemoglobin 27.6 pg (28.0-33.3); Monocytes % 9.4 %; Platelet Count 165 K/mcL (140-400); Red Cell Distribution Width 15.6 % (11.5-14.5); White Blood Count 17.5 K/mcL (4.3-11.1)
[2020-10-21 05:49] LABS: BUN/Creatinine Ratio 46 (6-26); Blood Urea Nitrogen 42 mg/dL (8-23); Calcium 8.9 mg/dL (8.6-10.3); Carbon Dioxide 30 mEq/L (23-29); Chloride 101 mEq/L (98-107); Glucose 197 mg/dL (70-105); Magnesium 1.9 mg/dL (1.6-2.6); Osmolality,Calculated 300 (280-300); Phosphorous 2.8 mg/dL (2.7-4.5); Potassium 4.7 mEq/L (3.5-5.1); Sodium 137 mEq/L (136-145); eGFR For African Americans > 60 (> 60); eGFR For Non-African Americans > 60 (> 60)
[2020-10-21 06:13] LABS: Monocytes # 1.7 K/mcL (0.0-1.3); Neutrophils # 13.7 K/mcL (1.6-8.9)
[2020-10-21 06:15] LABS: Platelet Estimate Normal (Normal)
[2020-10-21] MEDS: Isosorbide MONOnitrate (24 HR) 30 MG TAB.ER.24H PO SCH (07:48)
[2020-10-21] MEDS: Magnesium Oxide 400 MG TABLET PO SCH (07:48)
[2020-10-21] MEDS: Sennosides 8.6 MG TABLET PO SCH (07:48)
[2020-10-21] MEDS: Finasteride 5 MG TABLET PO SCH (07:48)
[2020-10-21] MEDS: Spironolactone 12.5 MG TABLET PO SCH (07:49)
[2020-10-21] MEDS: Cholecalciferol (D-3) 1,000 UNIT (25MCG) TABLET PO SCH (07:49)
[2020-10-21] MEDS: DilTIAZem SR (12hr) 60 MG CAP.ER.12H PO SCH (07:50)
[2020-10-21] MEDS: Cyanocobalamin (B-12) 1,000 MCG TABLET PO SCH (07:50)
[2020-10-21] MEDS: Mirtazapine 15 MG TABLET PO SCH (07:50)
[2020-10-21] MEDS: carvediloL 25 MG TABLET PO SCH ×2 (07:51→17:05)
[2020-10-21] MEDS: Furosemide 40 MG/4 ML VIAL IVP SCH (07:51)
[2020-10-21] MEDS: MethylPREDNISolone 40 MG/ML VIAL IVP SCH (07:52)
[2020-10-21] MEDS: GuaiFENesin Liq 200 MG/10 ML UDC PO SCH (07:53)
[2020-10-21] MEDS: Insulin LISPRO 300 UNITS/3 ML VIAL SUBQ SCH ×6 (07:59→17:07)
[2020-10-21] MEDS: Insulin DETEMIR 100 UNIT/ML X5UNITS SUBQ SCH (08:00)
[2020-10-21] MEDS: Budesonide/Formoterol 80/4.5 1 PUFF INH IH SCH (10:09)
[2020-10-21] MEDS: Azithromycin 500 MG in 0.9 % Sodium Chloride 250 ML IVPB SCH (12:18)
[2020-10-21 15:24] VITALS: BP 124/75
[2020-10-21] MEDS: *HR* Rivaroxaban 10 MG TABLET PO SCH (17:05)
[2020-10-22] MEDS ORDERED: predniSONE 20 MG TABLET PO SCH (09:00)
== END 2020-10-21 18:45 | DRG 205 ==
LOC: 2ANU → SUATTDRO 18:42 → ICNU 10-14 15:10 → 2ANU 10-15 15:20 → SUATTDRO 10-15 16:08
PROVIDERS: ADMIT Student in an Organized Health Care Education/Training Program; ATTEND Internal Medicine

== ENCOUNTER 2021-08-01 15:13 | Inpatient (IN) ==
[2021-08-01] MEDS ORDERED: Isovue-370 500 ML BOTTLE IVP ONE ×2 (15:29→17:19)
[2021-08-01 15:45] LABS: Eosinophils % 0.1 %; Red Cell Distribution Width 16.1 % (11.5-14.5)
[2021-08-01 15:47] LABS: Basophils % 0.1 %; Hematocrit 40.4 % (37.5-50.1); Hemoglobin 11.9 g/dL (12.9-16.9); Immature Granulocytes % 1.1 % (0-4); Lymphocytes # 1.2 K/mcL (0.6-4.6); Lymphocytes % 7.2 %; Mean Corpuscular HGB Conc 29.5 g/dL (31.6-35.5); Mean Corpuscular Hemoglobin 26.9 pg (28.0-33.3); Mean Corpuscular Volume 91.4 fL (83.0-100.0); Mean Platelet Volume 12.1 fL (9.4-12.4); Monocytes # 1.4 K/mcL (0.0-1.3); Monocytes % 8.2 %; Neutrophils # 13.9 K/mcL (1.6-8.9); Platelet Count 334 K/mcL (140-400); Red Blood Count 4.42 M/mcL (4.19-5.50); Segmented Neutrophils % 83.3 %; White Blood Count 16.7 K/mcL (4.3-11.1)
[2021-08-01 15:54] LABS: INR 1.8; Prothrombin Time 19.7 Seconds (9.4-12.1)
[2021-08-01 15:54] LABS: VBG HCO3 26 mEq/L (21-27); VBG PCO2 56 mmHg (41-51); VBG PH 7.26 pH Units (7.32-7.42); VBG PO2 51 mmHg (25-50)
[2021-08-01 15:56] LABS: Activated Partial Thrombo Time 31.9 Seconds (26.0-36.0)
[2021-08-01 16:15] LABS: Albumin 3.6 g/dL (3.5-5.7); Albumin/Globulin Ratio 0.9 (1.1-2.2); Alkaline Phosphatase 104 Units/L (34-104); Aspartate Amino Transferase 850 Units/L (13-39); BUN/Creatinine Ratio 14 (6-26); Bilirubin,Direct 0.4 mg/dL (0.0-0.2); Bilirubin,Indirect 0.5 mg/dL (0.0-1.0); Bilirubin,Total 0.9 mg/dL (0.3-1.0); Blood Urea Nitrogen 23 mg/dL (8-23); Carbon Dioxide 24 mEq/L (23-29); Chloride 97 mEq/L (98-107); Globulin 4.1 g/dL (2.4-3.5); Glucose 218 mg/dL (70-105); Osmolality,Calculated 282 (280-300); Potassium 6.8 mEq/L (3.5-5.1); Sodium 131 mEq/L (136-145); Total Protein 7.7 g/dL (6.4-8.9); Troponin I 0.48 ng/mL (< 0.04); eGFR For African Americans 51 (> 60); eGFR For Non-African Americans 42 (> 60)
[2021-08-01] MEDS ORDERED: Amiodarone Premix 360 MG/200 ML BAG IVC ONE (16:16)
[2021-08-01] MEDS ORDERED: Amiodarone Premix 150 MG/100 ML BAG IVPB ONE (16:16)
[2021-08-01 16:22] LABS: Hypochromasia Present (Not Present); Platelet Estimate Normal (Normal)
[2021-08-01] MEDS ORDERED: Insulin Human Regular 6 UNIT in 0.9 % Sodium Chloride 10 ML IV ONE (16:22)
[2021-08-01 16:25] LABS: Alanine Aminotransferase 729 Units/L (7-52); Thyroid Stimulating Hormone 3.209 mcIU/mL (0.340-5.600)
[2021-08-01 16:54] LABS: Amphetamine Screen,Urine Negative ng/mL (Cutoff=1000); Barbiturate Screen,Urine Negative ng/mL (Cutoff=200); Benzodiazepines Screen,Urine Negative ng/mL (Cutoff=200); Cannabinoid Screen,Urine Negative ng/mL (Cutoff = 50); Cocaine Screen,Urine Negative ng/mL (Cutoff= 300); Opiate Screen,Urine Negative ng/mL (Cutoff=300); Phencyclidine Screen,Urine Negative ng/mL (Cutoff=25)
[2021-08-01 16:56] LABS: Bilirubin,Urine Negative (Negative); Blood,Urine Moderate (Negative); Clarity,Urine Ex.Turbid (Clear); Color,Urine Yellow (Yellow); Glucose,Urine (UA) Normal (Normal); Ketones,Urine Negative (Negative); Leukocyte Esterase,Urine Large (Negative); Nitrite,Urine Negative (Negative); PH,Urine 5.5 pH Units (5.0-8.0); Protein,Urine 70 mg/dL (Neg-Trace); Specific Gravity,Urine 1.019 (1.010-1.025); Urobilinogen,Urine Normal (Normal)
[2021-08-01 16:58] LABS: RBC,Urine 15-30 per hpf (0-3)
[2021-08-01 16:59] LABS: Amorphous Sediment,Urine Moderate per hpf (None-Few); Bacteria,Urine Few per hpf (None-Few); Squamous Epithelial Cell,Urine Few per hpf (None-Few); WBC,Urine TNTC per hpf (0-3)
[2021-08-01 17:00] LABS: Hyaline Casts,Urine None Seen per lpf (None Seen)
[2021-08-01] MEDS ORDERED: Cefepime HCl 2,000 MG in Water for inj. (sterile) 20 ML IVP STA (17:11)
[2021-08-01 17:22] LABS: BUN/Creatinine Ratio 15 (6-26); Blood Urea Nitrogen 23 mg/dL (8-23); Calcium 9.6 mg/dL (8.6-10.3); Carbon Dioxide 25 mEq/L (23-29); Chloride 98 mEq/L (98-107); Ethanol < 10 mg/dL (Less than 10); Glucose 216 mg/dL (70-105); Osmolality,Calculated 282 (280-300); Potassium 6.5 mEq/L (3.5-5.1); Sodium 131 mEq/L (136-145); eGFR For African Americans 53 (> 60); eGFR For Non-African Americans 43 (> 60)
[2021-08-01] MEDS ORDERED: Vancomycin 2,000 MG/520 ML IV.SOLN IVPB ONE (17:30)
[2021-08-01] MEDS: Calcium Gluconate 1gm/50mL 1 GM/50 ML BAG IVPB PRN (17:31)
[2021-08-01 17:39] LABS: Acetaminophen < 10 mcg/mL (10-20); Lipase 20 Units/L (11-82)
[2021-08-01] MEDS ORDERED: 0.9 % Sodium Chloride 500 ML IVC ONE ×2 (18:22→19:32)
[2021-08-01 18:58] LABS: Hepatitis B Surface Antigen Nonreactive (Nonreactive)
[2021-08-01] MEDS ORDERED: SODIUM ZIRCONIUM CYCLOSILICATE 5 GM POWD.PACK PO STA (19:26)
[2021-08-01 19:27] LABS: Hepatitis B Core IgM Nonreactive (Nonreactive)
[2021-08-01] MEDS ORDERED: Lactulose Oral Soln 20 GM/30 ML UDC PO ONE (19:27)
[2021-08-01 19:28] LABS: Hepatitis C Virus Antibody Nonreactive (Nonreactive)
[2021-08-01] MEDS ORDERED: *HR* Heparin 5,000 UNIT/ML VIAL IVP ONE (19:28)
[2021-08-01] MEDS ORDERED: *HR* Heparin 5,000 UNIT/ML VIAL IVP PRN ×2 (19:28)
[2021-08-01 19:29] LABS: Hepatitis A Antibody IgM Nonreactive (Nonreactive)
[2021-08-01] MEDS ORDERED: Acetylcysteine 15,000 MG in D5% in Water 250 ML IVC ONE (19:58)
[2021-08-01] MEDS: Heparin 25,000UNIT/250ML 1/2NS 25,000 UNIT/250 ML IV.SOLN IVC SCH (20:04)
[2021-08-01] MEDS ORDERED: Acetylcysteine 5,000 MG in D5% in Water 500 ML IVC ONE (21:00)
[2021-08-01 21:28] LABS: Calcium 9.4 mg/dL (8.6-10.3)
[2021-08-01 22:03] LABS: Influenza A PCR Negative (Negative); Influenza B PCR Negative (Negative); Resp. Syncytial Virus PCR Negative (Negative)
[2021-08-01] MEDS ORDERED: Naloxone 0.4 MG/ML INJ IVP PRN (22:15)
[2021-08-01 22:46] LABS: SARS-CoV-2 by PCR (In House) Negative (Negative)
[2021-08-02] MEDS ORDERED: Insulin Human Regular 6 UNIT in 0.9 % Sodium Chloride 10 ML IV ONE (00:55)
[2021-08-02] MEDS ORDERED: SODIUM ZIRCONIUM CYCLOSILICATE 5 GM POWD.PACK PO ONE (00:56)
[2021-08-02] MEDS ORDERED: Acetylcysteine 10,000 MG in D5% in Water 1,000 ML IVC ONE (01:00)
[2021-08-02] MEDS: Calcium Gluconate 1gm/50mL 1 GM/50 ML BAG IVPB PRN (01:18)
[2021-08-02] MEDS: Amiodarone Premix 360 MG/200 ML BAG IVC SCH ×2 (01:26→14:00)
[2021-08-02] MEDS ORDERED: Dextrose Gel 15 GM/37.5 ML TUBE PO PRN ×2 (01:41)
[2021-08-02] MEDS ORDERED: *HR* Dextrose 50 % in Water (Syg) 50 ML SYRINGE IVP PRN (01:41)
[2021-08-02] MEDS ORDERED: D5% in Water 1,000 ML IVC PRN (01:41)
[2021-08-02 01:48] LABS: Basophils % 0.2 %; Eosinophils % 0.1 %; Immature Granulocytes % 0.9 % (0-4); Lymphocytes # 1.1 K/mcL (0.6-4.6); Lymphocytes % 5.7 %; Mean Corpuscular HGB Conc 29.4 g/dL (31.6-35.5); Mean Corpuscular Hemoglobin 26.6 pg (28.0-33.3); Mean Corpuscular Volume 90.4 fL (83.0-100.0); Mean Platelet Volume 11.8 fL (9.4-12.4); Monocytes # 1.8 K/mcL (0.0-1.3); Monocytes % 9.7 %; Neutrophils # 15.4 K/mcL (1.6-8.9); Platelet Count 244 K/mcL (140-400); Red Blood Count 3.76 M/mcL (4.19-5.50); Red Cell Distribution Width 16.1 % (11.5-14.5); Segmented Neutrophils % 83.4 %; White Blood Count 18.5 K/mcL (4.3-11.1)
[2021-08-02] MEDS ORDERED: Perflutren Lipid Microsphere 1.3 ML in 0.9 % Sodium Chloride 8.7 ML IVP PRN (02:06)
[2021-08-02 02:11] LABS: Sodium, Urine 14.5 mEq/L; Troponin I 0.79 ng/mL (< 0.04)
[2021-08-02 02:18] LABS: Albumin/Globulin Ratio 0.9 (1.1-2.2); Bilirubin,Total 0.5 mg/dL (0.3-1.0); Calcium 9.2 mg/dL (8.6-10.3); Chol/HDL Ratio 2.4 (0-4.9); Globulin 3.4 g/dL (2.4-3.5); Phosphorous 4.8 mg/dL (2.7-4.5); Potassium 6.1 mEq/L (3.5-5.1); Total Protein 6.4 g/dL (6.4-8.9)
[2021-08-02] MEDS: Cefepime HCl 1,000 MG in Water for inj. (sterile) 10 ML IVP SCH ×2 (06:51→18:42)
[2021-08-02] MEDS: Insulin LISPRO 300 UNITS/3 ML VIAL SUBQ SCH ×3 (10:56→18:45)
[2021-08-02] MEDS: Heparin 25,000UNIT/250ML 1/2NS 25,000 UNIT/250 ML IV.SOLN IVC SCH (13:01)
[2021-08-02] MEDS: SODIUM ZIRCONIUM CYCLOSILICATE 5 GM POWD.PACK PO SCH (16:01)
[2021-08-02] MEDS: 0.9 % Sodium Chloride 1,000 ML IVC SCH (16:02)
[2021-08-02] MEDS: Vancomycin 1,500 MG/265 ML IV.SOLN IVPB SCH (18:42)
[2021-08-02] MEDS: Insulin DETEMIR 100 UNIT/ML X5UNITS SUBQ SCH (21:33)
[2021-08-03] MEDS ORDERED: *HR* Metoprolol 5 MG/5 ML VIAL IVP ONE (01:57)
[2021-08-03] MEDS: Amiodarone Premix 360 MG/200 ML BAG IVC SCH ×2 (02:06→13:54)
[2021-08-03] MEDS: 0.9 % Sodium Chloride 1,000 ML IVC SCH (02:17)
[2021-08-03 05:31] LABS: Basophils % 0.1 %; Eosinophils % 0.2 %; Hematocrit 34.8 % (37.5-50.1); Hemoglobin 10.4 g/dL (12.9-16.9); Immature Granulocytes % 0.7 % (0-4); Lymphocytes # 0.9 K/mcL (0.6-4.6); Lymphocytes % 5.8 %; Mean Corpuscular HGB Conc 29.9 g/dL (31.6-35.5); Mean Corpuscular Hemoglobin 26.8 pg (28.0-33.3); Mean Corpuscular Volume 89.7 fL (83.0-100.0); Mean Platelet Volume 12.3 fL (9.4-12.4); Monocytes # 1.3 K/mcL (0.0-1.3); Monocytes % 8.5 %; Neutrophils # 12.8 K/mcL (1.6-8.9); Nucleated Red Blood Cells 0.1 /100 WBC (0); Platelet Count 216 K/mcL (140-400); Red Blood Count 3.88 M/mcL (4.19-5.50); Red Cell Distribution Width 15.9 % (11.5-14.5); Segmented Neutrophils % 84.7 %; White Blood Count 15.2 K/mcL (4.3-11.1)
[2021-08-03] MEDS: Heparin 25,000UNIT/250ML 1/2NS 25,000 UNIT/250 ML IV.SOLN IVC SCH ×2 (05:52→22:23)
[2021-08-03] MEDS: Cefepime HCl 1,000 MG in Water for inj. (sterile) 10 ML IVP SCH ×2 (05:52→17:13)
[2021-08-03 06:02] LABS: Calcium 9.2 mg/dL (8.6-10.3); Potassium 3.5 mEq/L (3.5-5.1)
[2021-08-03] MEDS: carvediloL 6.25 MG TABLET PO SCH ×3 (08:29→18:36)
[2021-08-03] MEDS: Insulin LISPRO 300 UNITS/3 ML VIAL SUBQ SCH ×3 (08:29→17:26)
[2021-08-03 11:22] LABS: Acinetobacter baumannii by PCR Not Detected (Not Detect); Candida albicans by PCR Not Detected (Not Detect); Candida glabrata by PCR Not Detected (Not Detect); Candida krusei by PCR Not Detected (Not Detect); Candida parapsilosis by PCR Not Detected (Not Detect); Candida tropicalis by PCR Not Detected (Not Detect); Enterobacter cloacae Cmplx PCR Not Detected (Not Detect); Enterobacteriaceae by PCR Not Detected (Not Detect); Enterococcus by PCR DETECTED (Not Detect); Escherichia coli by PCR Not Detected (Not Detect); Klebsiella oxytoca by PCR Not Detected (Not Detect); Klebsiella pneumoniae by PCR Not Detected (Not Detect); Proteus by PCR Not Detected (Not Detect); Pseudomonas aeruginosa by PCR Not Detected (Not Detect); Serratia marcescens by PCR Not Detected (Not Detect); Staphylococcus aureus by PCR Not Detected (Not Detect); Staphylococcus by PCR Not Detected (Not Detect); Streptococcus agalactiae(B)PCR Not Detected (Not Detect); Streptococcus by PCR Not Detected (Not Detect); Streptococcus pneumoniae PCR Not Detected (Not Detect); Streptococcus pyogenes (A) PCR Not Detected (Not Detect); vanA/B Vancomycin-Resist Genes Not Detected (Not Detect)
[2021-08-03] MEDS: SODIUM ZIRCONIUM CYCLOSILICATE 5 GM POWD.PACK PO SCH (13:15)
[2021-08-03] MEDS ORDERED: Perflutren Lipid Microsphere 1.3 ML in 0.9 % Sodium Chloride 8.7 ML IVP PRN (15:14)
[2021-08-03 16:08] LABS: Albumin 3.1 g/dL (3.5-5.7); Bilirubin,Direct 0.1 mg/dL (0.0-0.2); Bilirubin,Indirect 0.3 mg/dL (0.0-1.0); Bilirubin,Total 0.4 mg/dL (0.3-1.0); Globulin 3.2 g/dL (2.4-3.5); Total Protein 6.3 g/dL (6.4-8.9)
[2021-08-03] MEDS: Vancomycin 1,500 MG/265 ML IV.SOLN IVPB SCH (17:14)
[2021-08-03] MEDS: Ondansetron 4 MG/2 ML VIAL IVP SCH (17:58)
[2021-08-03] MEDS: Magnesium Oxide 400 MG TABLET PO SCH (21:02)
[2021-08-03] MEDS: Sennosides 8.6 MG TABLET PO SCH (21:02)
[2021-08-03] MEDS: Insulin DETEMIR 100 UNIT/ML X5UNITS SUBQ SCH (21:03)
[2021-08-03] MEDS: Budesonide/Formoterol 160/4.5 1 PUFF INH IH SCH (21:04)
[2021-08-04] MEDS: Ondansetron 4 MG/2 ML VIAL IVP SCH ×5 (00:12→23:27)
[2021-08-04] MEDS: Amiodarone Premix 360 MG/200 ML BAG IVC SCH ×2 (00:13→11:41)
[2021-08-04] MEDS: Cefepime HCl 1,000 MG in Water for inj. (sterile) 10 ML IVP SCH (06:00)
[2021-08-04 08:00] LABS: Basophils % 0.2 %; Eosinophils # 0.1 K/mcL (0.0-0.6); Eosinophils % 0.9 %; Hematocrit 33.2 % (37.5-50.1); Hemoglobin 9.7 g/dL (12.9-16.9); Immature Granulocytes % 0.8 % (0-4); Lymphocytes # 0.9 K/mcL (0.6-4.6); Lymphocytes % 7.3 %; Mean Corpuscular HGB Conc 29.2 g/dL (31.6-35.5); Mean Corpuscular Hemoglobin 26.6 pg (28.0-33.3); Mean Corpuscular Volume 91.2 fL (83.0-100.0); Monocytes # 1.1 K/mcL (0.0-1.3); Monocytes % 8.8 %; Nucleated Red Blood Cells 0.2 /100 WBC (0); Platelet Count 198 K/mcL (140-400); Red Blood Count 3.64 M/mcL (4.19-5.50); White Blood Count 12.1 K/mcL (4.3-11.1)
[2021-08-04 08:13] LABS: Alanine Aminotransferase 470 Units/L (7-52); Albumin 2.9 g/dL (3.5-5.7); Albumin/Globulin Ratio 0.9 (1.1-2.2); Alkaline Phosphatase 83 Units/L (34-104); Aspartate Amino Transferase 106 Units/L (13-39); BUN/Creatinine Ratio 14 (6-26); Bilirubin,Total 0.4 mg/dL (0.3-1.0); Blood Urea Nitrogen 20 mg/dL (8-23); Carbon Dioxide 27 mEq/L (23-29); Chloride 101 mEq/L (98-107); Globulin 3.1 g/dL (2.4-3.5); Glucose 116 mg/dL (70-105); Osmolality,Calculated 286 (280-300); Sodium 136 mEq/L (136-145); eGFR For African Americans > 60 (> 60); eGFR For Non-African Americans 50 (> 60)
[2021-08-04] MEDS: Budesonide/Formoterol 160/4.5 1 PUFF INH IH SCH ×2 (08:32→20:08)
[2021-08-04 10:10] LABS: Estimated Average Glucose 157 mg/dl; Hemoglobin A1C 7.1 %
[2021-08-04] MEDS: Magnesium Oxide 400 MG TABLET PO SCH ×2 (10:24→19:54)
[2021-08-04] MEDS: Sennosides 8.6 MG TABLET PO SCH ×2 (10:24→19:53)
[2021-08-04] MEDS: Finasteride 5 MG TABLET PO SCH (10:25)
[2021-08-04] MEDS: carvediloL 6.25 MG TABLET PO SCH ×2 (10:25→16:38)
[2021-08-04] MEDS: polyethylene glycoL 3350 17 GM POWD.PACK PO SCH (10:25)
[2021-08-04] MEDS: Insulin LISPRO 300 UNITS/3 ML VIAL SUBQ SCH ×3 (12:14→17:16)
[2021-08-04] MEDS: Heparin 25,000UNIT/250ML 1/2NS 25,000 UNIT/250 ML IV.SOLN IVC SCH (15:29)
[2021-08-04] MEDS: Cefepime HCl 2,000 MG in Water for inj. (sterile) 20 ML IVP SCH ×2 (16:37→23:27)
[2021-08-04 17:49] LABS: Bilirubin,Direct 0.2 mg/dL (0.0-0.2); Bilirubin,Indirect 0.2 mg/dL (0.0-1.0)
[2021-08-04] MEDS ORDERED: *HR* Amiodarone 200 MG TABLET PO SCH (18:00)
[2021-08-04] MEDS: *HR* Enoxaparin 150 MG/ML SYRINGE SQ SCH (19:49)
[2021-08-04] MEDS: *HR* Amiodarone 200 MG TABLET PO SCH (19:54)
[2021-08-04] MEDS: Insulin DETEMIR 100 UNIT/ML X5UNITS SUBQ SCH (19:58)
[2021-08-05] MEDS: *HR* Enoxaparin 150 MG/ML SYRINGE SQ SCH ×2 (05:19→18:21)
[2021-08-05] MEDS: Ondansetron 4 MG/2 ML VIAL IVP SCH ×3 (05:20→18:21)
[2021-08-05] MEDS ORDERED: Vancomycin 1,250 MG/262.5 ML IV.SOLN IVPB SCH (07:00)
[2021-08-05] MEDS: polyethylene glycoL 3350 17 GM POWD.PACK PO SCH (08:58)
[2021-08-05] MEDS: Magnesium Oxide 400 MG TABLET PO SCH ×2 (09:00→21:32)
[2021-08-05] MEDS: Sennosides 8.6 MG TABLET PO SCH ×2 (09:00→21:32)
[2021-08-05] MEDS: carvediloL 6.25 MG TABLET PO SCH ×2 (09:00→18:21)
[2021-08-05] MEDS: Finasteride 5 MG TABLET PO SCH (09:01)
[2021-08-05] MEDS: *HR* Amiodarone 200 MG TABLET PO SCH (09:01)
[2021-08-05] MEDS: Budesonide/Formoterol 160/4.5 1 PUFF INH IH SCH ×2 (09:03→20:27)
[2021-08-05] MEDS: Insulin LISPRO 300 UNITS/3 ML VIAL SUBQ SCH ×3 (09:03→18:12)
[2021-08-05] MEDS: Piperacillin/Tazobactam 3.375 GM in 0.9 % Sodium Chloride Mini Bag 100 ML IVPB SCH ×2 (09:42→18:22)
[2021-08-05 12:45] LABS: Lymphocytes % 9.2 %
[2021-08-05 12:47] LABS: Basophils % 0.3 %; Eosinophils # 0.3 K/mcL (0.0-0.6); Eosinophils % 2.6 %; Hematocrit 35.7 % (37.5-50.1); Hemoglobin 10.7 g/dL (12.9-16.9); Immature Granulocytes % 1.3 % (0-4); Mean Corpuscular Hemoglobin 26.8 pg (28.0-33.3); Mean Corpuscular Volume 89.5 fL (83.0-100.0); Mean Platelet Volume 12.4 fL (9.4-12.4); Monocytes # 1.2 K/mcL (0.0-1.3); Monocytes % 11.6 %; Nucleated Red Blood Cells 0.6 /100 WBC (0); Platelet Count 186 K/mcL (140-400); Red Blood Count 3.99 M/mcL (4.19-5.50); Red Cell Distribution Width 16.2 % (11.5-14.5); White Blood Count 10.7 K/mcL (4.3-11.1)
[2021-08-05 13:26] LABS: Albumin 2.7 g/dL (3.5-5.7); Albumin/Globulin Ratio 0.8 (1.1-2.2); Bilirubin,Total 0.4 mg/dL (0.3-1.0); Calcium 8.7 mg/dL (8.6-10.3); Globulin 3.3 g/dL (2.4-3.5); Magnesium 2.1 mg/dL (1.6-2.6); Potassium 3.8 mEq/L (3.5-5.1)
[2021-08-05 13:55] LABS: Anisocytosis 1+ (Not Present); Platelet Estimate Normal (Normal)
[2021-08-05] MEDS: Insulin DETEMIR 100 UNIT/ML X5UNITS SUBQ SCH (21:28)
[2021-08-06] MEDS: Ondansetron 4 MG/2 ML VIAL IVP SCH ×4 (01:13→18:14)
[2021-08-06] MEDS: Piperacillin/Tazobactam 3.375 GM in 0.9 % Sodium Chloride Mini Bag 100 ML IVPB SCH ×3 (01:13→18:15)
[2021-08-06] MEDS: *HR* Enoxaparin 150 MG/ML SYRINGE SQ SCH ×2 (05:58→18:15)
[2021-08-06 06:33] LABS: Basophils % 0.1 %; Eosinophils # 0.3 K/mcL (0.0-0.6); Eosinophils % 3.3 %; Hematocrit 35.1 % (37.5-50.1); Hemoglobin 10.2 g/dL (12.9-16.9); Immature Granulocytes % 0.9 % (0-4); Lymphocytes % 11.2 %; Mean Corpuscular HGB Conc 29.1 g/dL (31.6-35.5); Mean Corpuscular Hemoglobin 26.5 pg (28.0-33.3); Mean Corpuscular Volume 91.2 fL (83.0-100.0); Monocytes % 11.2 %; Neutrophils # 6.4 K/mcL (1.6-8.9); Nucleated Red Blood Cells 0.5 /100 WBC (0); Platelet Count 190 K/mcL (140-400); Red Blood Count 3.85 M/mcL (4.19-5.50); Red Cell Distribution Width 16.4 % (11.5-14.5); Segmented Neutrophils % 73.3 %; White Blood Count 8.7 K/mcL (4.3-11.1)
[2021-08-06 06:57] LABS: Albumin 2.9 g/dL (3.5-5.7); Bilirubin,Total 0.4 mg/dL (0.3-1.0); Globulin 2.9 g/dL (2.4-3.5); Magnesium 2.2 mg/dL (1.6-2.6); Potassium 3.1 mEq/L (3.5-5.1); Total Protein 5.8 g/dL (6.4-8.9)
[2021-08-06] MEDS: Insulin LISPRO 300 UNITS/3 ML VIAL SUBQ SCH ×3 (07:54→17:13)
[2021-08-06] MEDS: Budesonide/Formoterol 160/4.5 1 PUFF INH IH SCH ×2 (08:59→19:40)
[2021-08-06] MEDS: carvediloL 6.25 MG TABLET PO SCH ×2 (10:40→18:15)
[2021-08-06] MEDS: Sennosides 8.6 MG TABLET PO SCH ×2 (10:46→20:18)
[2021-08-06] MEDS: polyethylene glycoL 3350 17 GM POWD.PACK PO SCH (10:46)
[2021-08-06] MEDS: *HR* Amiodarone 200 MG TABLET PO SCH (10:46)
[2021-08-06] MEDS: Finasteride 5 MG TABLET PO SCH (10:49)
[2021-08-06] MEDS: Magnesium Oxide 400 MG TABLET PO SCH ×2 (10:49→20:18)
[2021-08-06] MEDS: Insulin DETEMIR 100 UNIT/ML X5UNITS SUBQ SCH (20:18)
[2021-08-07] MEDS: Ondansetron 4 MG/2 ML VIAL IVP SCH ×2 (00:35→05:53)
[2021-08-07] MEDS: Piperacillin/Tazobactam 3.375 GM in 0.9 % Sodium Chloride Mini Bag 100 ML IVPB SCH ×2 (00:36→08:00)
[2021-08-07] MEDS ORDERED: Ibuprofen 600 MG TABLET PO ONE (00:54)
[2021-08-07] MEDS ORDERED: *HR* Metoprolol 5 MG/5 ML VIAL IVP ONE ×2 (01:31→03:01)
[2021-08-07] MEDS ORDERED: Pantoprazole 40 MG VIAL IVP ONE (01:40)
[2021-08-07 02:02] LABS: Basophils % 0.2 %; Eosinophils % 2.3 %; Immature Granulocytes % 0.5 % (0-4); Red Cell Distribution Width 16.6 % (11.5-14.5)
[2021-08-07 02:03] LABS: Eosinophils # 0.3 K/mcL (0.0-0.6); Hematocrit 36.3 % (37.5-50.1); Hemoglobin 10.6 g/dL (12.9-16.9); Lymphocytes # 1.4 K/mcL (0.6-4.6); Lymphocytes % 11.6 %; Mean Corpuscular HGB Conc 29.2 g/dL (31.6-35.5); Mean Corpuscular Hemoglobin 26.7 pg (28.0-33.3); Mean Corpuscular Volume 91.4 fL (83.0-100.0); Mean Platelet Volume 11.9 fL (9.4-12.4); Monocytes # 1.1 K/mcL (0.0-1.3); Monocytes % 9.5 %; Neutrophils # 9.1 K/mcL (1.6-8.9); Nucleated Red Blood Cells 0.4 /100 WBC (0); Platelet Count 203 K/mcL (140-400); Red Blood Count 3.97 M/mcL (4.19-5.50); Segmented Neutrophils % 75.9 %
[2021-08-07 02:16] LABS: Albumin 2.9 g/dL (3.5-5.7); Albumin/Globulin Ratio 0.9 (1.1-2.2); Bilirubin,Total 0.5 mg/dL (0.3-1.0); Calcium 9.2 mg/dL (8.6-10.3); Globulin 3.4 g/dL (2.4-3.5); Potassium 3.1 mEq/L (3.5-5.1); Total Protein 6.3 g/dL (6.4-8.9)
[2021-08-07] MEDS: Nitroglycerin 0.4 MG TAB.SUBL SL PRN ×3 (02:34→02:45)
[2021-08-07 02:42] LABS: Anisocytosis 1+ (Not Present); Hypochromasia Present (Not Present); Platelet Estimate Normal (Normal); Reactive Lymphocytes Present (Not Present)
[2021-08-07] MEDS ORDERED: Morphine Sulfate 2 MG/ML SYRINGE IVP PRN (03:01)
[2021-08-07] MEDS ORDERED: Potassium Chloride 40 MEQ, Lidocaine 1% 2 ML in 0.9 % Sodium Chloride 500 ML IVPB ONE (03:30)
[2021-08-07] MEDS: *HR* Enoxaparin 150 MG/ML SYRINGE SQ SCH (05:52)
[2021-08-07] MEDS: Budesonide/Formoterol 160/4.5 1 PUFF INH IH SCH (07:41)
[2021-08-07 07:42] VITALS: O2SAT 91
[2021-08-07] MEDS: Insulin LISPRO 300 UNITS/3 ML VIAL SUBQ SCH ×2 (08:00→11:47)
[2021-08-07] MEDS: Heparin 25,000UNIT/250ML 1/2NS 25,000 UNIT/250 ML IV.SOLN IVC SCH (08:00)
[2021-08-07] MEDS ORDERED: carvediloL 6.25 MG TABLET PO SCH (08:00)
[2021-08-07] MEDS ORDERED: 0.9 % Sodium Chloride 500 ML IV ONE (08:07)
[2021-08-07 08:08] VITALS: BP 66/48; PULSE 88; TEMP 96.4
[2021-08-07] MEDS ORDERED: Metoprolol XL (24 HR) Succ 25 MG TAB.ER.24H PO SCH (09:00)
[2021-08-07] MEDS: polyethylene glycoL 3350 17 GM POWD.PACK PO SCH (11:45)
[2021-08-07] MEDS: *HR* Amiodarone 200 MG TABLET PO SCH (11:45)
[2021-08-07] MEDS: Sennosides 8.6 MG TABLET PO SCH (11:45)
[2021-08-07] MEDS: Magnesium Oxide 400 MG TABLET PO SCH (11:45)
[2021-08-07] MEDS: Finasteride 5 MG TABLET PO SCH (11:45)
== END 2021-08-07 13:55 | disposition expired | DRG 871 ==
LOC: 3NENU 15:13 → EMEROOARM 15:13 → SUATTDRO 22:54 → 3NENU 23:15
PROVIDERS: ADMIT Student in an Organized Health Care Education/Training Program; ATTEND Internal Medicine